=== PATIENT | female | born 1960 | race Caucasian/White ===

== ENCOUNTER → 2018-05-01 09:46 | Outpatient (CLI) | payer OTHER, SELFPAY | PROVIDERS: Family Provider Family Medicine; PCP Family Medicine; Visit Provider Nurse Practitioner Gerontology | DX: C50.919 Malignant neoplasm of unspecified site of unspecified female breast (principal); Z78.0 Asymptomatic menopausal state; Z82.62 Family history of osteoporosis; R29.890 Loss of height; Z87.891 Personal history of nicotine dependence | CPT/HCPCS: 77080 ==

== ENCOUNTER → 2018-06-07 12:58 | Outpatient (CLI) | payer OTHER, SELFPAY ==
--- NOTE | 2018-06-07 | DI.RAD.S_ITS ---
PROCEDURE: XR CHEST 2V INDICATIONS: ABDOMINAL PAIN/HISTORY OF BREAST CANCER,rib pain TECHNIQUE: 2 views of the chest were acquired. COMPARISON: [facility], , CHEST 1 VIEW, 09/22/2015, 15:49. FINDINGS: Surgical changes and devices: There is interval removal of previously noted right chest wall Port-A-Cath. Lungs and pleura: No pleural effusions or pneumothorax. Lungs are clear. Mediastinum: Mediastinal contours are normal. Heart size is normal. Bones and chest wall: No suspicious bony abnormalities. Soft tissues appear unremarkable. IMPRESSION: No acute cardiopulmonary pathology. Dictated by: Rodney Lackey M.D. on 06/07/2018 at 14:20 Approved by: Rodney Lackey M.D. on 06/07/2018 at 14:21
--- NOTE | 2018-06-07 13:01 | DI.CT.S_ITS ---
PROCEDURE: CT CHEST ABD PEL W CON INDICATIONS: Right sided chest and upper quadrant abdominal pain. Left sided breast cancer TECHNIQUE: After the administration of oral and intravenous contrast, 5 mm thick sections acquired from the lung apices to the symphysis. 5 mm coronal and sagittal reformats were performed, with additional 7 mm coronal MIP reformats through the lungs. For radiation dose reduction, the following was used: automated exposure control, adjustment of mA and/or kV according to patient size. COMPARISON: [facility], CT, CHEST/ABD/PEL WITH CONTRAST, 07/04/2015, 13:28. [facility], CT, CHEST/ABD/PEL WITH CONTRAST, 01/06/2018, 7:58. [facility], CR, XR CHEST 2V, 06/07/2018, 12:44. [facility], [place], BONE SCAN WHOLE BODY, 01/06/2018, 11:24. [facility], CT, THORAX WITHOUT CONTRAST, 09/09/2016, 12:44. [facility], CT, CHEST/ABD/PEL WITH CONTRAST, 06/24/2016, 12:30. [facility], CT, THORAX WITHOUT CONTRAST, 10/07/2017, 9:02. FINDINGS: Image quality: Excellent. CHEST: Lungs and pleura: Small lung nodules are present bilaterally, unchanged since 2014 or 2015, consistent with benign nodules. There is a scarlike density in the left upper lobe, presumably secondary to postradiation changes. No acute airspace opacities. No pleural effusions or pneumothorax. Central and peripheral airways appear patent and normal in caliber. Mediastinum: Heart size is normal. No pericardial effusion. No mediastinal or hilar adenopathy by size criteria. Thoracic aorta and central pulmonary arteries are normal in size. Esophagus is normal in caliber. No hiatal hernia. Chest wall: Bilateral mastectomy. Surgical clips in axillary. No axillary or supraclavicular adenopathy by size criteria. Thyroid gland is normal. ABDOMEN: Solid organs: Liver is normal in size and enhancement. Gallbladder is surgically absent. Biliary system is non dilated. Pancreas enhances normally. Spleen is normal in size and enhancement. No adrenal nodules. Kidneys demonstrate normal size and enhancement, without hydronephrosis. Peritoneum and bowel: Bowel loops demonstrate normal wall thickness and caliber. No free fluid or air. Nodes and vessels: No retroperitoneal or mesenteric adenopathy by size criteria. Aorta and inferior vena cava are normal in size. Miscellaneous: No ventral hernias. PELVIS: Genitourinary: Bladder wall thickness is normal. Miscellaneous: No inguinal hernias or adenopathy. Bones: No suspicious bony lesions. No vertebral body compression fractures. IMPRESSION: 1. No CT evidence for recurrent neoplasm. 2. Stable lung nodules as seen on multiple prior examinations, consistent with benign lesions. Dictated by: Erinn Dwyer M.D. on 06/07/2018 at 16:55 Approved by: Erinn Dwyer M.D. on 06/07/2018 at 17:18
== END ==
PROVIDERS: Family Provider Family Medicine; PCP Family Medicine; Visit Provider Nurse Practitioner Gerontology
DX: R10.11 Right upper quadrant pain (principal); R07.81 Pleurodynia; R91.8 Other nonspecific abnormal finding of lung field; Z85.3 Personal history of malignant neoplasm of breast
CPT/HCPCS: 71046; 71260; 74177; Q9967

== ENCOUNTER → 2019-01-31 13:43 | Outpatient (CLI) | payer OTHER, SELFPAY ==
--- NOTE | 2019-01-31 13:44 | DI.CT.S_ITS ---
PROCEDURE: CT CHEST ABD PEL W CON INDICATIONS: BREAST CANCER TECHNIQUE: After the administration of oral and intravenous contrast, 5 mm thick sections acquired from the lung apices to the symphysis. 5 mm coronal and sagittal reformats were performed, with additional 7 mm coronal MIP reformats through the lungs. For radiation dose reduction, the following was used: automated exposure control, adjustment of mA and/or kV according to patient size. COMPARISON: [facility], CT, THORAX WITHOUT CONTRAST, 09/09/2016, 12:44. [facility], CT, CT CHEST ABD PEL W CON, 06/07/2018, 13:59. FINDINGS: Image quality: Excellent. CHEST: Lungs and pleura: No acute airspace opacities. Small bilateral pulmonary nodules are stable dating back to 2016. Scarring in the left lung, involving the left upper lobe is again noted, possibly secondary to post radiation change. No pleural effusions or pneumothorax. Central and peripheral airways appear patent and normal in caliber. Mediastinum: Heart size is normal. No pericardial effusion. No mediastinal or hilar adenopathy by size criteria. Thoracic aorta and central pulmonary arteries are normal in size. Esophagus is normal in caliber. No hiatal hernia. Chest wall: No axillary or supraclavicular adenopathy by size criteria. Bilateral mastectomy. Thyroid gland is unremarkable. ABDOMEN: Solid organs: Liver is normal in size and enhancement. Gallbladder is surgically absent the. Biliary system is non dilated. Pancreas enhances normally. Spleen is normal in size and enhancement. No adrenal nodules. Kidneys demonstrate normal size and enhancement, without hydronephrosis. Peritoneum and bowel: Bowel loops demonstrate normal wall thickness and caliber. No free fluid or air. Nodes and vessels: No retroperitoneal or mesenteric adenopathy by size criteria. Aorta and inferior vena cava are normal in size. Miscellaneous: No ventral hernias. PELVIS: Genitourinary: Bladder wall thickness is normal. Miscellaneous: No inguinal hernias or adenopathy. Bones: No suspicious bony lesions. No vertebral body compression fractures. IMPRESSION: 1. Stable small bilateral pulmonary nodules consistent with benign disease. 2. No evidence of metastatic disease in the chest, abdomen, or pelvis. 3. Remote cholecystectomy. Dictated by: Mario Rhodes M.D. on 01/31/2019 at 17:11 Approved by: Mario Rhodes M.D. on 01/31/2019 at 17:17
--- NOTE | 2019-01-31 14:14 | PC.NURSE ---
20guage 2 catheter placed in right antecubital vein placed with ultrasound guidance. For CT procedure today. No lab draws.
== END ==
PROVIDERS: Family Provider Family Medicine; PCP Family Medicine; Visit Provider Internal Medicine Hematology & Oncology
DX: C50.919 Malignant neoplasm of unspecified site of unspecified female breast (principal); R91.8 Other nonspecific abnormal finding of lung field; Z90.49 Acquired absence of other specified parts of digestive tract
CPT/HCPCS: 71260; 74177; Q9967

== ENCOUNTER 2019-04-03 21:57 | Observation (INO) | payer OTHER, SELFPAY ==
[2019-04-03 22:21] VITALS: BP 146/72; PULSE 82; RESP 22; TEMP 37; O2SAT 97; BMI 46.6
--- NOTE | 2019-04-03 22:21 | ED.NAVMDI ---
HPI - Nausea/Vomiting/Diarrhea General Chief complaint: Neuro Symptoms/Deficit Stated complaint: NAUSEA, NOT FEELING RIGHT Time Seen by Provider: 04/03/19 22:00 Source: patient Mode of arrival: ambulatory Limitations: no limitations History of Present Illness HPI Narrative: 58-year-old female nonsmoker with history of breast cancer and hypertension presents with the chief complaint an episode double vision earlier today which was seemingly unprovoked. The episode lasted approximately 10-12 minutes and seemed to be only present with both eyes open as she covered her right eye and was able to see fine from her left eye and vice versa, however after this check her vision was completely normal even with both eyes so it is unclear if the episode was truly monocular or binocular. She denies any other focal neurologic findings such as numbness, tingling, weakness or ataxia. She does report a vague, generalized headache and some nausea in the aftermath. Furthermore, she had an episode of left-sided chest burning and pain that migrated up to her left anterior chest and is consistent with prior episodes of nerve pain in the aftermath of her mastectomy. Onset (ago): hour(s) Related Data Home Medications Medication Instructions Recorded Confirmed [COQ10] 200 mg PO Q DAY #0 05/28/16 12/01/18 lorazepam [Ativan] 0.5 mg PO QDAY PRN #0 MDD a 12/03/16 12/01/18 Ovega-3 1 cap PO QDAY #0 02/25/17 12/01/18 [APEX WATER] 1 cap PO Q DAY #0 03/24/17 12/01/18 [PREBIOTIC] 400 mg PO Q DAY #0 03/24/17 12/01/18 metoprolol tartrate 100 mg PO Q DAY #0 03/24/17 12/01/18 acyclovir 400 mg PO PRN PRN 04/21/18 01/25/19 chlorthalidone 25 mg PO DAILY 04/21/18 12/01/18 losartan 100 mg PO DAILY 04/21/18 12/01/18 cholecalciferol (vitamin D3) 4,000 unit PO DAILY 12/01/18 12/01/18 [Vitamin D3] iodine-sodium iodide [iodine] 1 - 5 drp/day DAILY 12/01/18 12/01/18 Cataplex B 01/25/19 Cataplex E 01/25/19 Previous Rx's Medication Instructions Recorded letrozole [Femara] 2.5 mg PO QDAY #90 tab 11/02/17 Allergies Allergy/AdvReac Type Severity Reaction Status Date / Time latex [LATEX] Allergy Intermediate RASH Verified 04/03/19 22:24 amlodipine Allergy Verified 04/03/19 22:24 TAGADERM Allergy Intermediate RASH Uncoded 12/01/18 11:57 Review of Systems Constitutional Denies chills, Denies fever(s), Reports headache(s), Denies lethargy and Denies weakness Eyes Reports change in vision, Reports diplopia, Denies eye discharge, Denies irritation and Denies loss of vision ENT Ears, Nose, Mouth, and Throat: Denies change in voice, Reports headache(s), Denies neck pain and Denies sore throat Cardiovascular Denies chest pain, Denies irregular heart rhythm, Denies lightheadedness, Denies palpitations, Denies dyspnea, Denies dyspnea on exertion and Denies orthopnea Respiratory Denies cough, Denies dyspnea, Denies dyspnea on exertion and Denies wheezing Gastrointestinal Gastrointestinal: Denies abdominal pain, Denies change in bowel habits, Denies diarrhea, Denies nausea and Denies vomiting Genitourinary Denies hematuria, Denies flank pain, Denies urinary incontinence and Denies urinary urgency Musculoskeletal Denies neck pain Integumentary/Breasts Denies pruritus, Denies erythema, Denies rash and Denies wounds Neurologic Denies confusion, Reports headache(s), Denies loss of vision and Denies weakness Psychiatric Denies anxiety, Denies confusion, Denies depression, Denies homicidal ideation and Denies suicidal ideation Endocrine Denies palpitations Hematologic/Lymphatic Denies easy bruising Allergic/Immunologic Denies wheezing PFSH Surgical History History of tonsillectomy Status post breast biopsy Status post cholecystectomy Status post tubal ligation Family History (Updated 11/17/15 @ 00:00 by Conversion Provider) Father Age: 87 Arthritis Prostate cancer Essential hypertension Grandmother Cancer Mother Age: 83 Arthritis [place] cell cancer Diabetes mellitus Heart disease Essential hypertension Grandmother Essential hypertension Cerebrovascular accident (CVA), unspecified mechanism Sister Age: 62 Arthritis Overweight Diabetes mellitus Essential hypertension Social History Smoking Status: Former smoker Family History Father Age: 87 Arthritis Prostate cancer Essential hypertension Grandmother Cancer Mother Age: 83 Arthritis [place] cell cancer Diabetes mellitus Heart disease Essential hypertension Grandmother Essential hypertension Cerebrovascular accident (CVA), unspecified mechanism Sister Age: 62 Arthritis Overweight Diabetes mellitus Essential hypertension Social History Smoking Status: Former smoker Exam Narrative Exam Narrative: GENERAL: 58-year-old female appears stated age, very pleasant and resting comfortably, in no current significant distress HEAD: Atraumatic. Normocephalic. No temporal or scalp tenderness. EYES: Pupils equal round and reactive. Extraocular motions intact. No scleral icterus. No injection or drainage. ENT: Nose without bleeding, purulent drainage or septal hematoma. Throat without erythema, tonsillar hypertrophy or exudate. Uvula midline. Airway patent. NECK: Trachea midline. No JVD or lymphadenopathy. Supple, nontender, no meningeal signs. CARDIOVASCULAR: Regular rate and rhythm without murmurs, gallops, or rubs. RESPIRATORY: Clear to auscultation. Breath sounds equal bilaterally. No wheezes, rales, or rhonchi. GASTROINTESTINAL: Abdomen soft, non-tender, nondistended. No hepato-splenomegaly, or palpable masses. No guarding. EXTREMITIES: No clubbing, cyanosis, or edema. No joint tenderness, effusion, or edema noted. BACK: Nontender without deformity or crepitance. No flank tenderness. NEURO: AOx3. SKIN: No rash or erythema. NIH Stroke Scale 1a. LOC: Patient is alert and keenly responsive (0) 1b. LOC Questions: Patient answers both LOC questions accurately (0) 1c. LOC Commands: Patient performs both tasks correctly (0) 2. Best Gaze: Normal (0) 3. Visual: No visual loss (0) 4. Facial palsy: Normal symmetrical movements (0) 5. Motor arm: No drift (0) 6. Motor leg: No drift (0) 7. Limb ataxia: Absent (0) 8. Sensory: Normal (0) 9. Best language: No aphasia; normal (0) 10. Dysarthria: Normal (0) 11. Extinction and inattention: No abnormality (0) NIHSS: 0 Initial Vital Signs Initial Vital Signs: Vital Signs Temperature 98.6 F 04/03/19 22:21 Pulse Rate 82 04/03/19 22:21 Respiratory Rate 22 04/03/19 22:21 Blood Pressure 146/72 H 04/03/19 22:21 Pulse Oximetry 97 04/03/19 22:21 Course Orders Ordered: ED Orders 04/03/19 22:22 XR chest 1V Stat EKG-12 Lead Stat 04/03/19 23:17 CT head/brain wo con Stat 04/03/19 23:19 Complete Blood Count AUTO DIFF Stat Comprehensive Metabolic Panel Stat Lipase Stat Troponin & CK Cardiac Panel Stat 04/04/19 01:02 Magnesium Stat Sodium Chloride (Normal Saline 0.9%) 1,000 mls @ 150 mls/hr IV CONT ILAN Last Admin: 04/03/19 23:16 Dose: Not Given Discontinued Medications Ondansetron HCl (Zofran) 4 mg IV NOW ONE Stop: 04/03/19 22:22 Last Admin: 04/03/19 23:04 Dose: Not Given Potassium Chloride (Potassium Chloride) 40 meq PO NOW ONE Stop: 04/03/19 23:53 Last Admin: 04/04/19 00:07 Dose: 40 meq Consultations Consultation #1: Called to [facility] the stroke neurologist to discuss the case. We sure the opinion that this series of symptoms requires admission for TIA workup including MRI and echocardiogram. Vital Signs - 8 hr 04/03/19 22:21 04/03/19 23:21 04/04/19 00:00 Temperature 98.6 F Pulse Rate 82 71 Respiratory Rate 22 17 19 Blood Pressure 146/72 H Blood Pressure [Right Arm] 122/78 110/79 Pulse Oximetry 97 100 04/04/19 01:00 Temperature Pulse Rate 65 Respiratory Rate 17 Blood Pressure Blood Pressure [Right Arm] 120/65 Pulse Oximetry 100 MDM - Nausea/Vomiting/Diarrhea Lab Data Result diagrams: 04/03/19 23:19 04/03/19 23:19 Lab Results 04/03/19 04/03/19 04/03/19 Range/Units 23:19 23:19 23:19 WBC 8.7 (4.5-11.0) X10^3/uL RBC 4.19 (4.0-5.2) X10^6/uL Hgb 13.1 (12.0-16.0) g/dL Hct 38.8 (36-46) % MCV 92.6 (80-100) fL MCH 31.4 (26-34) PG MCHC 33.9 (30-36) % RDW 13.2 (11.6-14.8) % Plt Count 199 (150-400) X10^3/uL Neut % (Auto) 72.6 (50-75) % Lymph % (Auto) 19.1 L (25-40) % [place] % (Auto) 6.8 (3-14) % Eos % (Auto) 1.1 L (2-4) % Baso % (Auto) 0.4 (0-2) % Neut # (Auto) 6300 (7391-9944) /uL Lymph # (Auto) 1700 (4066-9709) /uL [place] # (Auto) 600 (0-900) /uL Eos # (Auto) 100 (0-450) /uL Baso # (Auto) 0 (0-100) /uL Sodium 138 (137-145) mmol/L Potassium 2.9 L (3.4-5.1) mmol/L Chloride 101 (98-107) mmol/L Carbon Dioxide 28 (22-32) mmol/L BUN 26 H (7-17) mg/dL Creatinine 1.10 H (0.52-1.04) mg/dL Estimated GFR 51.2 L (>60) mL/min BUN/Creatinine Ratio 23.6 H (6-22) Glucose 125 H (70-100) mg/dL Calcium 9.3 (8.4-10.2) mg/dL Magnesium 2.4 H (1.6-2.3) mg/dL Total Bilirubin 0.6 (0.2-1.3) mg/dL AST 28 (14-36) IU/L ALT 20 (9-52) IU/L Alkaline Phosphatase 67 (38-126) U/L Total Creatine Kinase 92 (30-135) U/L CK-MB (CK-2) TNP CK-MB (CK-2) Rel Index TNP Troponin I < 0.012 (0.01-0.034) ng/mL Total Protein 7.5 (6.3-8.2) g/dL Albumin 4.2 (3.5-5.0) g/dL Globulin 3.3 (1.7-4.1) g/dL Albumin/Globulin Ratio 1.3 (1.0-2.8) Lipase 126 (23-300) U/L Urine Dip Bedside Urine Glucose Negative Bedside Urine Bilirubin - Negative Bedside Urine Ketone - Negative Urine Specific [place] 1.010 Bedside Urine Occult Blood - Negative Bedside Urine pH 6.5 Bedside Urine Protein - Negative Bedside Urine Urobilinogen - Negative Bedside Urine Nitrite - Negative Bedside Urine Leukocytes - Negative Esterase Imaging Data CT scan - head: Radiologist's impression: [facility] Narrative Medical decision making narrative: Patient has isolated neurologic symptoms that resolved, raising the suspicion TIA as etiology. It is unlikely that her potassium of 2.9 cause these symptoms though it could theoretically be the cause. She will require admission in the hospital for evaluation of possible TIA and other causes of her transient diplopia Discharge Plan Departure Patient Disposition: Admitted as Observation Clinical Impression: Brain TIA, Acute hypokalemia
--- NOTE | 2019-04-03 22:22 | DI.RAD.S_ITS ---
PROCEDURE: XR CHEST 1V INDICATIONS: pain/weakness TECHNIQUE: One view of the chest was acquired. COMPARISON: [facility], [place], XR CHEST 2V, 06/07/2018, 12:44. [facility], [place], CHEST 1 VIEW, 09/22/2015, 15:49. FINDINGS: Surgical changes and devices: Postsurgical clips each breast laterally. Lungs and pleura: Lungs are clear. No pleural effusions or pneumothorax. Mediastinum: Mediastinal contours appear normal. Heart size is normal. Bones and chest wall: No suspicious bony lesions. Overlying soft tissues appear unremarkable. IMPRESSION: Normal for age except for presumed prior breast carcinoma surgery bilaterally., source of current chest pain symptoms is not seen. Dictated by: Cuauhtemoc Gao M.D. on 04/04/2019 at 6:54 Approved by: Cuauhtemoc Gao M.D. on 04/04/2019 at 6:55
--- NOTE | 2019-04-03 23:17 | DI.CT.S_ITS ---
PROCEDURE: CT HEAD/BRAIN WO CON INDICATIONS: blurred vision, headache TECHNIQUE: Noncontrast 4.5 mm thick angled axial sections acquired from the foramen magnum to the vertex, with coronal and sagittal reformats. For radiation dose reduction, the following was used: automated exposure control, adjustment of mA and/or kV according to patient size. COMPARISON: None. FINDINGS: Image quality: Excellent. CSF spaces: Basal cisterns are patent. No extra-axial fluid collections. Ventricles are normal in size and shape. Brain: No midline shift. No intracranial masses or hemorrhage. [place]-white matter interface is normal. Skull and face: Calvarium and visualized facial bones are intact, without suspicious lesions. Sinuses: Visualized sinuses and mastoids are clear. IMPRESSION: Normal for age, source of current headache and blurred vision symptoms is not seen. Dictated by: Cuauhtemoc Gao M.D. on 04/04/2019 at 6:56 Approved by: Cuauhtemoc Gao M.D. on 04/04/2019 at 6:56
[2019-04-03 23:21] VITALS: BP 122/78; RESP 17
[2019-04-03 23:31] LABS: Add Manual Diff / Slide Review NO; Basophils Absolute Auto 0 /uL (0-100); Basophils Percent Auto 0.4 % (0-2); Eosinophils Absolute Auto 100 /uL (0-450); Eosinophils Percent Auto 1.1 % (2-4); Hematocrit 38.8 % (36-46); Hemoglobin 13.1 g/dL (12.0-16.0); Lymphocytes Absolute Auto 1700 /uL (1100-4500); Lymphocytes Percent Auto 19.1 % (25-40); Mean Corpuscular HGB Conc 33.9 % (30-36); Mean Corpuscular Hemoglobin 31.4 PG (26-34); Mean Corpuscular Volume 92.6 fL (80-100); Monocytes Absolute Auto 600 /uL (0-900); Monocytes Percent Auto 6.8 % (3-14); Neutrophils Absolute Auto 6300 /uL (1500-7000); Neutrophils Percent Auto 72.6 % (50-75); Platelet Count 199 X10^3/uL (150-400); Red Blood Cell Count 4.19 X10^6/uL (4.0-5.2); Red Cell Distribution Width 13.2 % (11.6-14.8); White Blood Cell Count 8.7 X10^3/uL (4.5-11.0)
[2019-04-03 23:43] LABS: Alanine Aminotransferase 20 IU/L (9-52); Albumin 4.2 g/dL (3.5-5.0); Albumin Globulin Ratio 1.3 (1.0-2.8); Alkaline Phosphatase 67 U/L (38-126); Aspartate Aminotransferase 28 IU/L (14-36); BUN Creatinine Ratio 23.6 (6-22); Bilirubin Total 0.6 mg/dL (0.2-1.3); Blood Urea Nitrogen 26 mg/dL (7-17); Calcium 9.3 mg/dL (8.4-10.2); Carbon Dioxide 28 mmol/L (22-32); Chloride 101 mmol/L (98-107); Creatine Kinase 92 U/L (30-135); Estimated Glomerular Filt Rate 51.2 mL/min (>60); Globulin 3.3 g/dL (1.7-4.1); Glucose 125 mg/dL (70-100); HEMOLYSIS < 15 (0-50); Lipase 126 U/L (23-300); Potassium 2.9 mmol/L (3.4-5.1); Sodium 138 mmol/L (137-145); Total Protein 7.5 g/dL (6.3-8.2)
[2019-04-03 23:55] LABS: Troponin I < 0.012 ng/mL (0.01-0.034)
[2019-04-04] VITALS (7 sets, daily range): BP systolic 110–151; BP diastolic 65–93; PULSE 61–71; RESP 16–68; TEMP 36.3–36.9; O2SAT 97–100; BMI 46.6
[2019-04-04] MEDS: POTASSIUM CHLORIDE 20 MEQ/15 ML UDC 40 MEQ PO (00:07)
[2019-04-04 01:14] LABS: Magnesium 2.4 mg/dL (1.6-2.3)
--- NOTE | 2019-04-04 02:45 | DI.MRI.S_ITS ---
PROCEDURE: MR STROKE Pre- and post-contrast brain MRI, non-contrast brain MR angiogram, pre- and postcontrast neck MR angiogram INDICATIONS: TIA, visual disturbance TECHNIQUE: Brain: Noncontrast axial T1 spin echo, axial T2 fast spin echo, sagittal and axial FLAIR, coronal T2 fast spin echo, axial gradient echo, axial diffusion and ADC through the brain. After the administration of contrast, axial 3D VIBE of the cranial vasculature and brain. Brain MRA: Non-contrast 3-D time of flight MR angiogram, with multiple ykifzei-kwvzajfhl-orilnopdob (MIP) reformats performed. Neck MRA: Axial and sagittal TruFISP through the neck. Coronal dynamic MR angiogram during administration of contrast in the arterial and venous phases, with 3-dimenstional uiiirbn-cvqbvsmir-dzmxgisdjs (MIP) reformats constructed from subtraction images. COMPARISON: None. FINDINGS: Image quality: Mild patient motion during image acquisition.. BRAIN: CSF spaces: Ventricles are normal in size and shape. Basal cisterns are patent. No extra-axial fluid collections. Brain: No intracranial bleeds or mass effects. [place]-white matter interface is normal. Diffusion weighted images show no acute ischemic insults. Brainstem appears normal. Normal intravascular flow voids are present. No abnormal intracranial enhancement. Skull and face: Calvarial marrow signal is normal. Orbits appear normal. Sinuses: Sinuses and mastoids are clear. BRAIN MR ANGIOGRAM: Anterior circulation: Intracranial internal carotid arteries are normal in size and enhancement. The flow within the paired anterior cerebral arteries is normal and symmetric. The flow within the middle cerebral arteries is normal and symmetric. The anterior communicating artery is seen. No stenoses, occlusions, or aneurysms. Posterior circulation: The visualized portions of the vertebral arteries demonstrate normal caliber, and join to form a normal appearing basilar artery. The flow within the posterior cerebral arteries is normal and symmetric. No stenoses, occlusions, or aneurysms. NECK MR ANGIOGRAM: Carotids: Great vessels demonstrate a conventional anatomy as they arise from the aortic arch. The origins of the common carotid arteries appear patent. The calibers and courses of both common carotid arteries are normal. The bifurcation regions appear normal bilaterally. The internal carotid arteries demonstrate normal course and caliber. Posterior circulation: The origins of the vertebral arteries appear patent. More superior portions of both vertebral arteries demonstrate normal course and caliber, and join to form a normal appearing basilar artery. Miscellaneous: Subclavian arteries appear patent. Pre-contrast images through the neck show no soft tissue abnormalities. IMPRESSION: BRAIN MRI: No mass or stroke is found, no hemorrhage is identified. Source of current symptoms is not seen. BRAIN MR ANGIOGRAM: Normal intracranial MR angiogram. NECK MR ANGIOGRAM: Normal cervical MR angiogram. Dictated by: Cuauhtemoc Gao M.D. on 04/04/2019 at 10:50 Approved by: Cuauhtemoc Gao M.D. on 04/04/2019 at 11:02
--- NOTE | 2019-04-04 02:54 | DI.ECHO.S_ITS ---
[facility] +---------+ : : [address] : : : : [address] : : : : [address] : : : : Phone: [phone] Echocardiogram Report + + :Name: STEPHANIE PUENTES Study Date: 04/04/2019 Height: 62 in : :[facility] Exam Location: [facility] Weight: 255 lb : : Gender: Female BSA: 2.1 m2 : :: 1960 Age: 58 yrs BP: 140/81 mmHg: :Reason For Study: MURMUR : : Performed By: Chadd Harris : :Referring: MIRACLE MEYER : + + Interpretation Summary 1) Normal left ventricular thickness, size, wall motion, and systolic function (EF 60-65%). 2) Normal right ventricular size and function. 3) No significant valvular abnormalities. 4) Compared to the [facility] odone 09/26/2015, no significant change. Procedure: A two-dimensional transthoracic echocardiogram with color flow and Doppler was performed. The study quality was technically adequate. Comparison is made with the echocardiogram of 09/26/15. The patient was in normal sinus rhythm during the exam. Left Ventricle: The left ventricle is normal in size. There is normal left ventricular wall thickness. The ejection fraction is estimated to be 60-65%. There are no focal wall motion abnormalities. Right Ventricle: The right ventricle is normal in size and function. Atria: The left atrium is mildly dilated. Right atrial size is normal. The interatrial septum is intact with no evidence for an atrial septal defect. Mitral Valve: The mitral valve is normal in structure and function. There is trace mitral regurgitation. Aortic Valve: The aortic valve is trileaflet. The aortic valve opens well. There is no aortic valve stenosis. There is trace aortic regurgitation. Tricuspid Valve: The tricuspid valve is normal in structure and function. There is trace tricuspid regurgitation. The right ventricular systolic pressure is estimated to be at least 24 mmHg based on an estimated right atrial pressure of 3 mm Hg. Pulmonic Valve: The pulmonic valve is normal in structure and function. There is trace pulmonic regurgitation. Great Vessels: The aortic root is normal size. The dimensions of the ascending aorta are normal. The pulmonary artery is normal size. The IVC is of normal diameter and collapses greater than 50% with a sniff. This suggests a low right atrial pressure of 3 mm Hg. Pericardium/ Pleura There is no pericardial effusion. There is no pleural effusion. MMode/2D Measurements & Calculations LVIDd: 5.0 cm LVOT diam: 2.1 cm LVIDs: 2.9 cm Ao root diam: 3.0 cm FS: 41.9 % Aortic Jxn: 2.5 cm EPSS: 0.42 cm asc Aorta Diam: 3.4 cm IVSd: 0.95 cm Ao Arch Diam (Prox Trans): 2.7 cm LVPWd: 0.90 cm LV ortiz. diameter/BSA (cm/m^2): 2.4 LV sys. diameter/BSA (cm/m^2): 1.4 LA dimension: 3.7 cm RA long axis: 5.1 cm LA A2 area: 24.7 cm2 RA area: 15.7 cm2 LA A4 area: 22.0 cm2 RA vol: 41.1 ml LA length (vol): 5.6 cm RA : 19.4 ml/m2 LA vol: 81.9 ml IVC diam: 1.2 cm LA vol index: 38.6 ml/m2 Doppler Measurements & Calculations Ao V2 max: 176.7 cm/sec LVOT Max Arjesh: 120.1 cm/sec Ao V2 mean: 134.3 cm/sec LV V1 max P.8 mmHg Ao max P.5 mmHg LV V1 VTI: 26.4 cm Ao mean P.7 mmHg MARIA LUISA(I,D): 2.1 cm2 Ao V2 VTI: 42.4 cm MARIA LUISA(V,D): 2.3 cm2 sev ratio: 0.62 MARIA LUISA indexed to BSA (cm^2/m^2): 1.0 MV E max rajesh: 75.3 cm/sec TR max rajesh: 227.4 cm/sec MV A max rajesh: 65.5 cm/sec TR max P.7 mmHg MV E/A: 1.2 PA V2 max: 101.6 cm/sec Med Peak E' Rajesh: 5.9 cm/sec PA V2 mean: 74.1 cm/sec E/E' med: 12.8 PA mean P.4 mmHg Lat Peak E' Rajesh: 10.8 cm/sec PA pr(Accel): 4.1 mmHg E/E' lat: 7.0 PA Accel Time: 0.17 sec E/e' average: 9.9 MV dec time: 0.20 sec SV(LVOT): 90.6 ml Reading Physician:02:41 PM
--- NOTE | 2019-04-04 02:57 | PM.HP.1 ---
History of Present Illness Date Patient Seen: 04/04/19 Time Patient Seen: 02:30 Chief complaint: NAUSEA, NOT FEELING RIGHT Narrative: Ms. Shannon Eden is a 58-year-old female patient with history significant for hypertension, hypothyroidism, left breast cancer stage III post chemotherapy obstructive sleep apnea on CPAP presents to the ER after developing an episode of double vision this evening. Patient states she had a both visual changes consisting of diplopia with both eyes open however describes normal vision in each eye with the other eye covered. She had associated mild headache but denies nausea or dizziness, dysphagia or dysarthria, no weakness numbness or tingling or ataxia. The episode lasted approximately 10-12 minutes and resolved spontaneously. The patient has a history of breast cancer stage III which has been treated with bilateral mastectomy and chemotherapy which has since been completed. She does has been followed by Dr. Fernandez after developing elevated troponins during chemotherapy and has had ongoing surveillance. She does endorse an episode of left lateral chest pain which she believes to be chest wall and may be related to her previous surgery. She also describes having brief episodes of palpitations in the form of rapid heart rate that her self terminating stating she is unsure as of the palpitations really present or if she is imagining it. She denies any complaints of fevers or chills, nasal congestion or sore throat. She has had no shortness of breath cough or wheezing. She denies abdominal pain, nausea vomiting, diarrhea or constipation. She denies dysuria. She does wear a left arm sleeve for lymphedema management. Upon arrival in the ER the patient is afebrile 98.6 with heart rate is 82 and blood pressure 146/72. Respirations are 22 with an oxygen saturation 97% on room air. She did have a head CT completed which found no acute intracranial pathology. She had laboratory testing done which finds normal white count at 8.7 with a hemoglobin of 13.1 hematocrit 38.8 with platelets of 199. Her chemistries are notable for a low potassium of 2.9 for which she sees 4 mil equivalents p.o. in the ER with a normal sodium 138, BUN of 26 and creatinine 1.1 with a EGFR of 512. Her nonfasting glucose is 125 and she has a magnesium level of 2.4. Her liver functions were all within normal limits as were her troponin and CK. The ER provider did speak the [place] Stroke team. The patient is admitted for rule out TIA and treatment of hypokalemia. Patient History Medical History Cancer of left female breast (Acute) Elevated TSH (Acute) Hypertension (Acute) Surgical History History of tonsillectomy Status post breast biopsy Status post cholecystectomy Status post tubal ligation Family History Father Age: 87 Arthritis Prostate cancer Essential hypertension Grandmother Cancer Mother Age: 83 Arthritis Nixon cell cancer Diabetes mellitus Heart disease Essential hypertension Grandmother Essential hypertension Cerebrovascular accident (CVA), unspecified mechanism Sister Age: 62 Arthritis Overweight Diabetes mellitus Essential hypertension Social History Smoking Status: Former smoker Comment: Patient lives at home alone and has been for 6 years. Her father still living and has had hypertension atrial fibrillation, prostate cancer and a pituitary tumor. Her mother has had cardiac disease related to rheumatic fever, atrial fibrillation and chronic renal problems. She has 1 brother who has diabetes and is suffered a stroke. Smoking: Patient previously smoked 1/2 pack per day for approximately 25 years. Alcohol: The patient a longer consumes alcohol quitting in 2016. Substance use: The patient uses cannabis eatibles and will vap cannabis. Advanced directives: In direct discussion with the patient she wishes to be a FULL CODE. Family & Social History Family History Father Age: 87 Arthritis Prostate cancer Essential hypertension Grandmother Cancer Mother Age: 83 Arthritis Wheatcroft cell cancer Diabetes mellitus Heart disease Essential hypertension Grandmother Essential hypertension Cerebrovascular accident (CVA), unspecified mechanism Sister Age: 62 Arthritis Overweight Diabetes mellitus Essential hypertension Safety & Behavioral: Feels Safe in Current Yes Environment Tobacco & Substance use: Smoking Status Former smoker alcohol intake frequency 0-2 drinks per day Substance Use Type marijuana Meds Home Medications Medication Instructions Recorded Confirmed Type [COQ10] 200 mg PO Q DAY #0 05/28/16 12/01/18 History lorazepam [Ativan] 0.5 mg PO QDAY PRN #0 MDD a 12/03/16 12/01/18 History Ovega-3 1 cap PO QDAY #0 02/25/17 12/01/18 History [APEX WATER] 1 cap PO Q DAY #0 03/24/17 12/01/18 History [PREBIOTIC] 400 mg PO Q DAY #0 03/24/17 12/01/18 History letrozole [Femara] 2.5 mg PO QDAY #90 tab 11/02/17 04/04/19 Rx chlorthalidone 25 mg PO DAILY 04/21/18 04/04/19 History losartan 100 mg PO DAILY 04/21/18 04/04/19 History cholecalciferol (vitamin D3) 4,000 unit PO DAILY 12/01/18 12/01/18 History [Vitamin D3] iodine-sodium iodide [iodine] 1 - 5 drp/day DAILY 12/01/18 04/04/19 History Cataplex B 01/25/19 History Cataplex E 01/25/19 History metoprolol succinate 100 mg PO DAILY 04/04/19 04/04/19 History Allergies Allergy/AdvReac Type Severity Reaction Status Date / Time latex [LATEX] Allergy Intermediate RASH Verified 04/03/19 22:24 amlodipine Allergy Verified 04/03/19 22:24 TAGADERM Allergy Intermediate RASH Uncoded 12/01/18 11:57 Review of Systems Review of Systems All systems reviewed & are unremarkable except as noted in HPI and below Exam Vital Signs (past 8 hours): - 04/03/19 22:21 04/03/19 23:21 04/04/19 00:00 Temperature 98.6 F Pulse Rate 82 71 Respiratory Rate 22 17 19 Blood Pressure 146/72 H Blood Pressure [Right Arm] 122/78 110/79 Pulse Oximetry 97 100 04/04/19 01:00 04/04/19 02:25 Temperature Pulse Rate 65 68 Respiratory Rate 17 16 Blood Pressure 120/65 Blood Pressure [Right Arm] 120/65 Pulse Oximetry 100 98 Oxygen Delivery Method Room Air Narrative Exam Narrative: GENERAL APPEARANCE: well developed, morbidly obese female with BMI 46.6 who is well-groomed, pleasant and in no acute distress. HEAD: Normocephalic, atraumatic, no scalp lesions. EYES: No ptosis, pupils equal, round, reactive to light and accommodation, sclera non-icteric, extraocular movement intact without nystagmus, visual day intact by confrontation. EARS: normal external structures, no ear pain NOSE: sinuses non tender to percussion, no rhinorrhea ORAL CAVITY: mucosa moist without lesions or exudate, palate normal, tongue in midline. THROAT: normal, no erythema, no exudate, pharynx normal, uvula midline. NECK/THYROID: neck supple, no jugular venous distention, no carotid bruit, no thyromegaly, trachea midline. LYMPH NODES: no cervical or supraclavicular lymphadenopathy. SKIN: warm and dry, no suspicious lesions, no rashes, good turgor. HEART: regular rate and rhythm, S1-S2 1/6 systolic murmur over the upper right sternal border, no rubs or gallops, brisk capillary refill, no edema LUNGS: clear to auscultation bilaterally, no coarseness crackles or wheezing, no cough present CHEST: Symmetrical movement, no accessory muscle use, no pain to AP and lateral compression. ABDOMEN: Soft, no distention, no epigastric or abdominal tenderness on palpation, no guarding or peritoneal signs, no organomegaly, no flank or suprapubic tenderness, active bowel tones. BACK: nontender to palpation EXTREMITIES: moves all extremities, strength is 5/5 and symmetrical, well perfused. NEUROLOGIC: AAO x4, no focal neurologic deficits, cranial nerves II-XII grossly intact , no drift, post chemo neuropathy distal forefoot bilaterally. PSYCH: alert, cooperative, cognitive function intact, good eye contact, stable mood with congruent affect Objective Labs Result Diagrams: 04/03/19 23:19 04/03/19 23:19 Labs: Laboratory Results - last 24 hr 04/03/19 04/03/19 04/03/19 23:19 23:19 23:19 WBC 8.7 RBC 4.19 Hgb 13.1 Hct 38.8 MCV 92.6 MCH 31.4 MCHC 33.9 RDW 13.2 Plt Count 199 Neut % (Auto) 72.6 Lymph % (Auto) 19.1 L [place] % (Auto) 6.8 Eos % (Auto) 1.1 L Baso % (Auto) 0.4 Neut # (Auto) 6300 Lymph # (Auto) 1700 [place] # (Auto) 600 Eos # (Auto) 100 Baso # (Auto) 0 Sodium 138 Potassium 2.9 L Chloride 101 Carbon Dioxide 28 BUN 26 H Creatinine 1.10 H Estimated GFR 51.2 L BUN/Creatinine Ratio 23.6 H Glucose 125 H Calcium 9.3 Magnesium 2.4 H Total Bilirubin 0.6 AST 28 ALT 20 Alkaline Phosphatase 67 Total Creatine Kinase 92 CK-MB (CK-2) TNP CK-MB (CK-2) Rel Index TNP Troponin I < 0.012 Total Protein 7.5 Albumin 4.2 Globulin 3.3 Albumin/Globulin Ratio 1.3 Lipase 126 Assessment & Plan Assessment & Plan narrative: The patient is admitted to the hospital following an episode of visual changes consisting of diplopia at spontaneous resolved lasting approximately 12 minutes with incidental finding of hypokalemia. 1. Acute TIA, symptoms resolved upon arrival -patient with changes in vision with diplopia, when patient checks each eye individually she describes her vision is normal. -patient has risk factors including breast cancer having completed chemo, hypertension, obesity and likely hyperlipidemia. She is also complained of palpitations. -continue being dull headache rated at 1 to 2/10 -NIH score is 0, ABCD2 score is 2. -will start aspirin 81 mg daily. -will start atorvastatin 40 mg daily -will obtain MR stroke protocol -obtain an echocardiogram. -will replete potassium and recheck BMP. -will check lipid panel and adjust atorvastatin dose as needed. -PT and OT to evaluate and treat. 2. Acute Hypokalemia, present on admission -patient has been on chlorthalidone 25 mg for over a year, her potassium has been recently checked and found to be 3.5 but notes that the level has been trending down. -this may be complexity in her symptomatology however she has no other complaints of weakness, EKG is sinus rhythm at 68 without ectopy or block, no T-wave changes. -patient received 40 mEq of potassium solution in the emergency department, -potassium K rider 40 mEq x1 now. -will recheck BMP. 3. Hypertension, stable -blood pressure on admission was 146/72 with most recent reading of 120/65. -will continue patient's home medications of metoprolol succinate 100 mg daily, losartan 100 mg daily and chlorthalidone 25 mg daily. 4. Hypothyroidism, unknown status -the patient reports having elevated TSH at 12 and has been taking supplements. -last reported free T4 level was 0.75 2 years ago. -will obtain a TSH with reflex to T4. 5. Morbid obesity, BMI 45.6 -patient is actively seeking to lose weight and states understanding implications of obesity. -consult a dietitian. 6. Breast cancer stage III, post chemotherapy, stable -patient is under active surveillance by Dr. Ramos, oncology. -continue patient's home medication of letrozole 2.5 mg daily. The patient admitted to the hospital related to the severity of symptoms and the risk for complications or adverse events. The patient is admitted observation with expected length of stay to be less than 2 midnights. Scores ABCD2 Age >= 60 years: no Initial BP. Either SBP >= 140 or DBP >= 90.: yes Clinical features of the TIA: other symptoms Duration of symptoms: 10-59 minutes History of diabetes: no ABCD2 Score: 2 NIHSS Level of Conciousness: Alert, keenly responsive Ask month/age: Answers both questions correctly. Open/close eyes, close hand: Performs both tasks correctly Best gaze horizontal: Normal Visual day: No visual loss Facial palsy: Normal symetrical movement Left arm drift: No drift for full 10 sec Right arm drift: No drift for full 10 sec Left leg drift: No drift for full 10 sec Right leg drift: No drift for full 10 sec Limb ataxia: Absent Sensory on face/arms/legs: Normal, no sensory loss Best language: No aphasia, normal Dysarthria: Normal Extinction or inattention: No abnormality Total NIH Stroke scale score: 0
[2019-04-04] MEDS: SODIUM CHLORIDE 0.9% 1,000 ML 50 ML IV (03:24)
[2019-04-04] MEDS: POTASSIUM CHLORIDE 40 MEQ in SODIUM CHLORIDE 0.9% 500 ML 130 ML IV (03:57)
--- NOTE | 2019-04-04 04:36 | PC.NURSE ---
Addendum entered and electronically signed by Rafaela Linn R.N. 04/04/19 06:25: Pt has K+ going at 105 instead of 130 because 130ml/hr was burning too much. Lab was told to hold lab draw at 0600 because K rider isn't in yet. Lab to be notified when to come back after K+ is finished. Original Note: Safe hand off from TREER. Pt arrived on unit at 0300 by wheelchair. Pt is A&ox4, Calm and cooperative. Standby assist at bedside. Pt denies pain, and lung sounds are clear bilaterally. Pt is on Tele: NS. VSS 115/73, P61, R17, W113.8kg. Pt has had extensive mastectomy on left side and right side mastectomy w/ lymph nodes still intact. SCD's were applied bilaterally, education was done about the use of call light and call light is by her side.
[2019-04-04 04:49] LABS: Free T3, Triiodothyronine Free 2.42 pg/mL (2.77-5.27); Free T4, Direct Thyroxine 0.58 ng/dL (0.78-2.19)
[2019-04-04] MEDS: CHLORTHALIDONE 25 MG TABLET PO (07:57)
[2019-04-04] MEDS: ASPIRIN EC 81 MG TABLET PO (07:57)
[2019-04-04] MEDS: METOPROLOL ER 50 MG TABLET 100 MG PO (07:57)
--- NOTE | 2019-04-04 11:11 | ST.IPCSEOM ---
Care Team Visit Care Team Role Provider Type L Sylwia Escalante MD Family Provider Non-Staff Primary Care Provider Specialty: Family Practice Address: [facility] [place], [address] Email: Esteban Garcia DO Emergency Provider Physician Specialty: Emergency Medicine Address: [address] [place] [address], [address] Email: [email or web address] Admit Provider Physician Attending Provider Specialty: Internal Medicine Address: [address] [place] [address], [id number] Email: Past Medical History (Last Reviewed 04/04/19 @ 03:16 by EDIE Urias) Cancer of left female breast (Acute Medical) Elevated TSH (Acute Medical) Hypertension (Acute Medical) Speech-Language Pathology 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 Clinical Swallow Evaluation Start: 04/04/19 10:54 Freq: Status: Active Protocol: Document 04/04/19 10:56 LNK (Rec: 04/04/19 11:10 LNK [id number]) Clinical Swallow Evaluation Session Time Visit Start Time 10:30 Visit Stop Time 10:50 Total Visit Minutes 20 Setting Assessment Location Acute Care Visit Type Note Type Initial Evaluation Patient Information Identification Type Name ID Wristband History Medical History (Reviewed 03/18 @ 03:16 by EDIE Urias) Cancer of left female breast (Acute) Elevated TSH (Acute) Hypertension (Acute) Shannon Eden presented to the ER after developing an episode of double vision this evening . Patient stated she had a both visual changes consisting of diplopia with both eyes open however describes normal vision in each eye with the other eye covered. She had associated mild headache but denies nausea or dizziness, dysphagia or dysarthria, no weakness numbness or tingling or ataxia. The episode lasted approximately 10-12 minutes and resolved spontaneously. Subjective Observations Shannon was up in her room having just returned from MRI. She was able to relate to me her event history without s/sx of aphasia, dysarthria or cognitive difficulty. Pt's diadochokinesis was WNL. Her affect, recall, orientation and memory appeared to WNL. Extensive education re: s/sx of the above disorders was provided to the pt, who indicated she understood and was appreciative. shannon remarked that her sisterf had a CVA and that she was familiar with the s/sx to be aware of in the future. Evaluation Liquids Trialed Thin Solids Trialed Regular Administration Type Self-Feeding Oral Impairment WNL Oral Phase Comments Oral phase observed to be WNL. No oral residue. No cough/ choke/wet voicing noted. Shannon safely masticated and swallowed regular texture without difficulty. Pharyngeal Impairment WNL Pharyngeal Phase Comments Pharyngeal phase of pt's swallow was observed to be WNL . Hyolaryngeal elevation/ excursion was adequate, no audible swallow sound, no evidence of pharyngeal pooling noted. Findings Dysphagia Type NONE Impressions Shannon presented with swallowing WNL for oral/pharyngeal phases. No overt s/sx of dysphagia were observed. Shannon safely tolerated regular texture and thin liquids without overt s/sx aspiration. Diet Recommendations Liquids Order Thin Diet Order Regular Medication Recommendations As Tolerated Aspiration Precautions Recommended Precautions Upright at 90 Degrees Treatment Plan Placement Recommendations after Home Discharge Appropriate for Therapy No
--- NOTE | 2019-04-04 12:33 | OT.IP.TRT ---
Occupational Therapy Treatment Note M3 OT- IP Subjective and Pain Start: 04/04/19 12:19 Freq: Status: Active Protocol: Document 04/04/19 12:19 [facility] (Rec: 04/04/19 12:33 [facility] [id number]) OT- Subjective Occupational Therapy Visit Type Type Treatment Note Visit Start Time 12:05 Visit Stop Time 12:15 Total Visit Minutes 10 Occupational Therapy Visit Comments Patient Comments Pt states feels back to normal just mainly tired from not sleepy well. OT Pain Assessment Pain When Pain Assessed At Rest Pain Present Pain Present Denied Pain M6 OT- IP Functional Cognition Start: 04/04/19 12:19 Freq: Status: Active Protocol: Document 04/04/19 12:19 [facility] (Rec: 04/04/19 12:33 [facility] [id number]) Cognitive Factors Limiting Selfcare Function Cognitive Ability Level of Alertness Alert Patient Orientation Name Age Birthday Month Date Year Day of Week Place Situation Attention Span Ability Capable of Focused Attention Capable of Sustained Attention Ability to Follow Commands Able to Follow Multi-Step Commands Memory Description No Deficits Noted Safety Awareness No Deficits Noted Problem Solving Ability No deficits Noted Executive Function Ability No Deficits Noted Cognitive Comments Cognitive Assessment Comments Pt able scored 82 seconds on the [place] making Part B which implies mild to moderate deficits for visual attention, task switching, speed of processing, executive function and mental flexibility. Pt feels that since she has not slept well is why she it ttok her longer to complete. Able to educate pt on energy conservation, work simplification and making sure to include eye breaks as she usually on the computer for hours at a time. M9 OT- IP Assessment and Plan Start: 04/04/19 12:19 Freq: Status: Active Protocol: Document 04/04/19 12:19 [facility] (Rec: 04/04/19 12:33 [facility] [id number]) OT Summary Assessment and Plan Summary Assessment Summary Pt low complexity and feels back to baseline, and mainly just tired from not sleeping well. Pt to discharge home when medically stable. No further OT indicated at this time.
[2019-04-04 12:59] LABS: BUN Creatinine Ratio 22.5 (6-22); Blood Urea Nitrogen 18 mg/dL (7-17); Calcium 9.4 mg/dL (8.4-10.2); Carbon Dioxide 27 mmol/L (22-32); Chloride 103 mmol/L (98-107); Cholesterol 221 mg/dL (140-199); Estimated Glomerular Filt Rate > 60.0 mL/min (>60); Glucose 108 mg/dL (70-100); HDL Cholesterol 46 mg/dL (40-60); HEMOLYSIS 24 (0-50); LDL Cholesterol Calculated 152 mg/dL (<100); Sodium 139 mmol/L (137-145); Triglycerides 113 mg/dL (35-150)
[2019-04-04 13:14] LABS: Free T4, Direct Thyroxine 0.57 ng/dL (0.78-2.19)
--- NOTE | 2019-04-04 16:17 | P.DS_ITS ---
History of Present Illness Date Patient Seen: 04/04/19 Chief complaint: NAUSEA, NOT FEELING RIGHT Narrative: Ms. Shannon Eden is a 58-year-old female patient with history significant for hypertension, hypothyroidism, left breast cancer stage III post chemotherapy obstructive sleep apnea on CPAP presents to the ER after developing an episode of double vision this evening. Patient states she had a both visual changes consisting of diplopia with both eyes open however describes normal vision in each eye with the other eye covered. She had associated mild headache but denies nausea or dizziness, dysphagia or dysarthria, no weakness numbness or tingling or ataxia. The episode lasted approximately 10-12 minutes and resolved spontaneously. The patient has a history of breast cancer stage III which has been treated with bilateral mastectomy and chemotherapy which has since been completed. She does has been followed by Dr. Fernandez after developing elevated troponins during chemotherapy and has had ongoing surveillance. She does endorse an episode of left lateral chest pain which she believes to be chest wall and may be related to her previous surgery. She also describes having brief episodes of palpitations in the form of rapid heart rate that her self terminating stating she is unsure as of the palpitations really present or if she is imagining it. She denies any complaints of fevers or chills, nasal congestion or sore throat. She has had no shortness of breath cough or wheezing. She denies abdominal pain, nausea vomiting, diarrhea or constipation. She denies dysuria. She does wear a left arm sleeve for lymphedema management. Upon arrival in the ER the patient is afebrile 98.6 with heart rate is 82 and blood pressure 146/72. Respirations are 22 with an oxygen saturation 97% on room air. She did have a head CT completed which found no acute intracranial pathology. She had laboratory testing done which finds normal white count at 8.7 with a hemoglobin of 13.1 hematocrit 38.8 with platelets of 199. Her chemistries are notable for a low potassium of 2.9 for which she sees 4 mil equivalents p.o. in the ER with a normal sodium 138, BUN of 26 and creatinine 1.1 with a EGFR of 512. Her nonfasting glucose is 125 and she has a magnesium level of 2.4. Her liver functions were all within normal limits as were her troponin and CK. The ER provider did speak the [place] Stroke team. The patient is admitted for rule out TIA and treatment of hypokalemia. Discharge Providers Date of admission: 04/04/19 01:58 Discharge Date: 04/04/19 Primary care physician: Swetha Escalante MD Consults: 04/04/19 02:47 Consult to Dietitian, Adult Routine Comment: Reason For Exam: Morbid Obesity BMI 46.6 04/04/19 02:48 Consult to Discharge Planning Routine Comment: Consult to Occupational Therapy Evaluate & Treat Comment: TIA, visual disturbance Physician Instructions: Evaluate and treat Consult to Physical Therapy Evaluate & Treat Comment: Physician Instructions: Evaluate and Treat 04/04/19 02:50 Consult to Speech Therapy Evaluate & Treat Comment: Physician Instructions: Evaluate and treat Discharge provider: Kinjal Cook MD Summary Discharge Diagnosis: 1. Probable TIA 2. Hypertension 3. History of breast cancer 4. Hypothyroid 5. Obstructive sleep apnea 6. Morbid obesity Hospital Course: Patient was admitted to the hospital for evaluation of blurred vision, visual changes with abrupt onset. Symptoms completely resolved prior to hospitalization she had no further symptoms in the hospital. She had no weakness knee numbness tingling or speech disturbance. Patient was admitted to the hospital for rule out TIA. Her head CT initially was negative. Patient had an MRI of the brain which was also negative. She had an echocardiogram which showed normal LV function. Patient was given Plavix initially. She was maintained on her usual blood pressure medications. She was started on a statin medication. 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 She had no further complaints at this time. Patient was found to be hypothyroid. Her serum thyroid level was over 80. Her T3 and T4 levels were low. Patient will be started on Synthroid at 75 mcg per day. She was also found to have hyperlipidemia. She was started on a statin as well. She will follow up with the PCP for further evaluation. Exam Vital Signs (past 8 hours): - 04/04/19 15:40 Temperature 97.4 F L Pulse Rate 68 Respiratory Rate 68 H Blood Pressure 151/93 H Pulse Oximetry 99 Oxygen Delivery Method Room Air Narrative Exam Narrative: Pleasant female in no acute distress HEENT: Normocephalic atraumatic, extraocular muscles are intact, oropharynx is clear Lungs: Clear to auscultation Cardiac exam: Regular rate and rhythm normal S1-S2 with a 2/6 systolic ejection murmur Abdomen soft nontender nondistended Extremity no edema Neurological exam nonfocal Objective Labs Result Diagrams: 04/03/19 23:19 04/04/19 12:33 Labs: Laboratory Results - last 24 hr 04/03/19 04/03/19 04/03/19 23:19 23:19 23:19 WBC 8.7 RBC 4.19 Hgb 13.1 Hct 38.8 MCV 92.6 MCH 31.4 MCHC 33.9 RDW 13.2 Plt Count 199 Neut % (Auto) 72.6 Lymph % (Auto) 19.1 L [place] % (Auto) 6.8 Eos % (Auto) 1.1 L Baso % (Auto) 0.4 Neut # (Auto) 6300 Lymph # (Auto) 1700 [place] # (Auto) 600 Eos # (Auto) 100 Baso # (Auto) 0 Sodium 138 Potassium 2.9 L Chloride 101 Carbon Dioxide 28 BUN 26 H Creatinine 1.10 H Estimated GFR 51.2 L BUN/Creatinine Ratio 23.6 H Glucose 125 H Calcium 9.3 Magnesium 2.4 H Total Bilirubin 0.6 AST 28 ALT 20 Alkaline Phosphatase 67 Total Creatine Kinase 92 CK-MB (CK-2) TNP CK-MB (CK-2) Rel Index TNP Troponin I < 0.012 Total Protein 7.5 Albumin 4.2 Globulin 3.3 Albumin/Globulin Ratio 1.3 Triglycerides Cholesterol LDL Cholesterol, Calc HDL Cholesterol Lipase 126 TSH Free T4 Free T3 04/03/19 04/04/19 04/04/19 23:19 12:33 12:33 WBC RBC Hgb Hct MCV MCH MCHC RDW Plt Count Neut % (Auto) Lymph % (Auto) [place] % (Auto) Eos % (Auto) Baso % (Auto) Neut # (Auto) Lymph # (Auto) [place] # (Auto) Eos # (Auto) Baso # (Auto) Sodium 139 Potassium 4.0 Chloride 103 Carbon Dioxide 27 BUN 18 H Creatinine 0.80 Estimated GFR > 60.0 BUN/Creatinine Ratio 22.5 H Glucose 108 H Calcium 9.4 Magnesium Total Bilirubin AST ALT Alkaline Phosphatase Total Creatine Kinase CK-MB (CK-2) CK-MB (CK-2) Rel Index Troponin I Total Protein Albumin Globulin Albumin/Globulin Ratio Triglycerides 113 Cholesterol 221 H LDL Cholesterol, Calc 152 H HDL Cholesterol 46 Lipase TSH 84.20 H 74.80 H Free T4 0.58 L 0.57 L Free T3 2.42 L Discharge Plan Discharge Plan Patient Disposition: Home Discharge Med Rec/Prescriptions Prescriptions: New atorvastatin [Lipitor] 20 mg Tablet 40 mg PO BEDTIME Qty: 30 RF: 0 aspirin 81 mg Tablet,Delayed Release (Dr/Ec) 81 mg PO DAILY Qty: 30 RF: 0 levothyroxine [Synthroid] 75 mcg tablet 75 mcg PO DAILY Qty: 30 RF: 0 Continued [COQ10] 200 mg PO Q DAY Qty: 0 RF: 0 lorazepam [Ativan] 0.5 MG tablet 0.5 mg PO QDAY MDD a PRN (Reason: Anxiety) Qty: 0 RF: 0 Ovega-3 500-270-135 mg Capsule 1 cap PO QDAY Qty: 0 RF: 0 [PREBIOTIC] 400 mg PO Q DAY Qty: 0 RF: 0 [APEX WATER] 1 cap PO Q DAY Qty: 0 RF: 0 letrozole [Femara] 2.5 MG tablet 2.5 mg PO QDAY Qty: 90 RF: 2 metoprolol succinate 100 mg tablet extended release 24 hr 100 mg PO DAILY RF: 0 losartan 100 mg Tablet 100 mg PO DAILY RF: 0 chlorthalidone 25 mg Tablet 25 mg PO DAILY RF: 0 iodine-sodium iodide [iodine] 2 % Tincture 1 - 5 drp/day DAILY RF: 0 cholecalciferol (vitamin D3) [Vitamin D3] 2,000 unit Capsule 4,000 unit PO DAILY RF: 0 Cataplex B RF: 0 Cataplex E RF: 0 Follow up/Referrals: Swetha Escalante MD [Primary Care Provider] - Provider Discharge Instructions Diet: Low-fat, Low-sodium and Low-cholesterol Activity: as tolerated Visit Report/Discharge Packet Instructions: DI for Transient Ischemic Attack, DI for Hypokalemia, Atorvas tatin, Clopidogrel Visit Report Forms: Stroke Signs & Symptoms Discharge Data Primary Care Provider: Swetha Escalante Attending Provider: Maksim Posadas Admit Date/Time: 04/04/19 01:58 Quality VTE Deep Vein Thrombosis/Pulmonary Embolism Present on Admission: No
--- NOTE | 2019-04-04 18:44 | PC.NURSE ---
Pt denies diplopia, donovan, weakness; speech clear and gait steady; Tele SR; VSS; patient education includes TIA, hypokalemia, plavix, statin, and fu care; pt escorted at to private vehicle with belongings in hand.
--- NOTE | 2019-04-05 09:03 | CM.DANOTE ---
Discharge Planning/Care Management Late Entry: DCP: assessment: Case received yesterday, EMR reviewed. Discussed POC in Team Rounds. 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 PCP: Swetha Escalante Payer: [facility] Pt admitted with some visual disturbances, workup was planned and OT/PT/MONORAIL HOOKER was ordered. A check in this morning (04/05) shows that pt was cleared for home setting/see OT notes for specifics and Dr. Cook did ok pt for home in late afternoon. No d/c concerns were identified by the care team members. CM Discharge Assessment Start: 04/05/19 09:03 Freq: Status: Active Protocol: Document 04/05/19 09:03 ITV (Rec: 04/05/19 09:03 ITV [id number]) Discharge Planning Assessment Advance Directives? Yes Advance Directives on File Yes History Provided By Medical Record Prior Living Arrangements House Household Members none
[2019-04-06 15:02] LABS: Thyroid Peroxidase Antibodies 1 IU/mL (< 9)
[2019-04-07 10:21] LABS: Triiodothyronine T3 Total 73 ng/dL (76-181)
== END 2019-04-04 18:46 | disposition home or self-care (01) ==
LOC: ED 04-04 01:39 → AC 04-04 02:00
PROVIDERS: Admitting Provider Nurse Practitioner Adult Health; Emergency Provider Emergency Medicine; Family Provider Family Medicine; PCP Family Medicine; Visit Provider Nurse Practitioner Adult Health
DX: H53.2 Diplopia (principal); R51 Headache; R11.0 Nausea; I10 Essential (primary) hypertension; E87.6 Hypokalemia; E03.9 Hypothyroidism, unspecified; G47.33 Obstructive sleep apnea (adult) (pediatric); Z85.3 Personal history of malignant neoplasm of breast; E66.01 Morbid (severe) obesity due to excess calories; Z68.42 Body mass index [BMI] 45.0-49.9, adult
CPT/HCPCS: 36415; 70450; 70548; 70553; 71045; 80048; 80053; 80061; 81003; 82550; 83690; 83735; 84439; 84443; 84480; 84481; 84484; 85025; 86376; 92610; 93005; 93306; 96360; 96361; 97161; 97530; 99283; 99285; G0378; A9579; J3480

== ENCOUNTER → 2019-08-08 09:50 | Outpatient (CLI) | payer OTHER, SELFPAY ==
[2019-04-04 03:46] VITALS: BMI 46.6
== END ==
PROVIDERS: PCP Family Medicine; Visit Provider Internal Medicine Hematology & Oncology
DX: Z78.0 Asymptomatic menopausal state (principal); Z82.62 Family history of osteoporosis; Z87.891 Personal history of nicotine dependence
CPT/HCPCS: 77080; 77081

== ENCOUNTER → 2020-01-08 11:28 | Outpatient (CLI) | payer OTHER, SELFPAY ==
[2019-04-04 03:46] VITALS: BMI 46.6
--- NOTE | 2020-01-08 11:29 | DI.CT.S_ITS ---
PROCEDURE: CT CHEST ABD PEL W CON INDICATIONS: History of breast cancer now with cough, and upper chest pain. TECHNIQUE: After the administration of oral and intravenous contrast, 5 mm thick sections acquired from the lung apices to the symphysis. 5 mm coronal and sagittal reformats were performed, with additional 7 mm coronal MIP reformats through the lungs. For radiation dose reduction, the following was used: automated exposure control, adjustment of mA and/or kV according to patient size. COMPARISON: [facility], CT, CHEST/ABD/PEL WITH CONTRAST, 01/06/2018, 7:58. [facility], CT, CT CHEST ABD PEL W CON, 06/07/2018, 13:59. [facility], CT, CT CHEST ABD PEL W CON, 01/31/2019, 14:38. FINDINGS: Image quality: Excellent. CHEST: Lungs and pleura: There is linear scarring anteriorly within the left upper lobe and lingula are redemonstrated as well as mild scarring within the lung apices. There are a few scattered pulmonary nodules redemonstrated including a right lower lobe nodule extending to the major fissure on series 3 image 162 measuring up to 6 mm. A 4 mm nodule is demonstrated in the right lower lobe on image 153. In addition within the right lower lobe, small 2 mm nodules are demonstrated on image 133, 139, 175, 195, and 196. In the left lower lobe, there is a 3 mm nodule on image 171. These appear similar in size compared to the prior studies given differences in technique. No new suspicious masses lesions. No pleural effusions or pneumothorax. Central and peripheral airways appear patent and normal in caliber. Mediastinum: Heart size is normal. No pericardial effusion. No mediastinal or hilar adenopathy by size criteria. Thoracic aorta and central pulmonary arteries are normal in size. Esophagus is normal in caliber. No hiatal hernia. Chest wall: There are postsurgical changes in the anterior chest wall and axilla bilaterally. No axillary or supraclavicular adenopathy by size criteria. ABDOMEN: Solid organs: Evaluation of the liver demonstrates no focal hepatic lesions. The gallbladder is surgically absent. Biliary system is non-dilated. Pancreas enhances normally. No peripancreatic fat stranding or fluid collections. No pancreatic duct dilatation. The spleen is normal in size. No adrenal nodules. Kidneys demonstrate no hydronephrosis. Peritoneum and bowel: Bowel loops demonstrate normal wall thickness and caliber. The appendix is normal in appearance. There is colonic diverticulosis without acute diverticulitis. No free fluid or air. Nodes and vessels: No retroperitoneal or mesenteric adenopathy by size criteria. Aorta and inferior vena cava are normal in size. Miscellaneous: No ventral hernias. PELVIS: Genitourinary: Bladder wall thickness is normal. Miscellaneous: No inguinal hernias or adenopathy. Bones: No suspicious bony lesions. No vertebral body compression fractures. IMPRESSION: 1. No definite evidence of new recurrent or metastatic disease. 2. Multiple small bilateral pulmonary nodules appear stable compared to prior studies given differences in technique. Dictated by: Dany Van M.D. on 01/08/2020 at 16:21 Approved by: Dany Van M.D. on 01/08/2020 at 16:32
== END ==
PROVIDERS: PCP Family Medicine; Referring Provider Internal Medicine Hematology & Oncology; Visit Provider Internal Medicine Hematology & Oncology
DX: C50.412 Malignant neoplasm of upper-outer quadrant of left female breast; R05 Cough; R07.89 Other chest pain; R91.8 Other nonspecific abnormal finding of lung field; Z17.0 Estrogen receptor positive status [ER+]; Z90.49 Acquired absence of other specified parts of digestive tract
CPT/HCPCS: 71260; 74177; Q9967

== ENCOUNTER → 2020-04-15 10:08 | Outpatient (CLI) | payer OTHER, SELFPAY ==
[2019-04-04 03:46] VITALS: BMI 46.6
--- NOTE | 2020-04-15 10:10 | DI.NM.S_ITS ---
PROCEDURE: [place] BONE SCAN WHOLE BODY RADIOPHARMACEUTICAL: 20.1 mCi Tc-99m MDP IV. INDICATIONS: left shoulder left upper arm deep bone pain, breast canc TECHNIQUE: Delayed whole-body scintigrams were obtained approximately 3-4 hours after intravenous injection of radiotracer. Anterior and posterior views were acquired from vertex to feet. Additional left and right oblique views of the cervical spine and thoracic cage were obtained. COMPARISON: [place], [place], BONE SCAN WHOLE BODY, 01/06/2018, 11:24. FINDINGS: No lesions are identified in skull, sternum, clavicles, scapulae, ribs, bony pelvis, and visualized shafts of the long bones. There is increased uptake in cervical, thoracic and lumbar spine with distribution indistinguishable from degenerative disc and facet disease; early metastasis to spine could be obscured by degenerative changes. There are foci of increased periarticular activity involving shoulders bilaterally, sternoclavicular joints bilaterally, knees bilaterally and feet bilaterally, compatible with degenerative/arthritic changes. IMPRESSION: 1. No definitive scintigraphic findings to suggest osseous metastasis. 2. Degenerative/arthritic changes as described. Dictated by: Erinn Dwyer M.D. on 04/15/2020 at 17:07 Approved by: Erinn Dwyer M.D. on 04/15/2020 at 17:10
== END ==
PROVIDERS: PCP Family Medicine; Referring Provider Internal Medicine Hematology & Oncology; Visit Provider Internal Medicine Hematology & Oncology
DX: M79.622 Pain in left upper arm (principal); M25.512 Pain in left shoulder; C50.412 Malignant neoplasm of upper-outer quadrant of left female breast; Z17.0 Estrogen receptor positive status [ER+]
CPT/HCPCS: 78306; A9503

== ENCOUNTER → 2020-08-07 12:42 | Outpatient (CLI) | payer OTHER, SELFPAY ==
[2019-04-04 03:46] VITALS: BMI 46.6
--- NOTE | 2020-08-07 | DI.ECHO.S_ITS ---
[facility] +---------+ : : [address] : : : : [id number] : : : : Phone: [phone] Echocardiogram Report + + :Name: STEPHANIE PUENTES Study Date: 08/07/2020 Height: 63 in : :[facility] Weight: 238 lb: : Gender: Female BSA: 2.1 m2 : :: 1960 Age: 59 yrs : :Reason For Study: Breast Cancer, Ventricular premature beats : :Ordering Physician: BHUMI, : :CARLOS MANUEL Performed By: Ginger Enriquez : :Referring: LYNDON PALMA : + + Interpretation Summary 1) Normal left ventricular thickness, size, wall motion, and systolic function (EF 55-60%). 2) Normal right ventricular size and function. 3) No significant valvular abnormalities. 4) Compared to the Echo done 04/04/2019, no significant change. Procedure: A two-dimensional transthoracic echocardiogram with color flow and Doppler was performed in limited views only. The study quality was technically adequate. Comparison is made with the echocardiogram of 04/04/2019. The heart rate ranged between 58-69 bpm during the study. Left Ventricle: The left ventricle is normal in size and wall thickness. The ejection fraction is estimated to be 55-60%. Left ventricular systolic function is normal without focal wall motion abnormalities. Right Ventricle: The right ventricle is normal in size and function. Atria: Both atria are normal in size. There is no Doppler evidence for an interatrial shunt. Mitral Valve: The mitral valve is normal in structure and function. There is trace mitral regurgitation. Aortic Valve: The aortic valve is trileaflet. The aortic valve opens well. There is no aortic valve stenosis. There is trace aortic regurgitation. Tricuspid Valve: The tricuspid valve is normal in structure and function. The right ventricular systolic pressure is estimated to be at least 25 mmHg based on an estimated right atrial pressure of 3 mm Hg. There is mild tricuspid regurgitation. Pulmonic Valve: The pulmonic valve leaflets are thin and pliable; valve motion is normal. There is no pulmonic valvular regurgitation. Great Vessels: The aortic root is normal size. The ascending aorta is at the upper limits of normal in size. The IVC is of normal diameter and collapses greater than 50% with a sniff. This suggests a low right atrial pressure of 3 mm Hg. Pericardium/ Pleura There is no pericardial effusion. There is no pleural effusion. MMode/2D Measurements & Calculations LVIDd: 5.0 cm LVOT diam: 2.0 cm LVIDs: 3.2 cm Ao root diam: 2.9 cm FS: 36.0 % asc Aorta Diam: 3.5 cm EPSS: 0.59 cm Ao Arch Diam (Prox Trans): 2.8 cm IVSd: 0.74 cm LVPWd: 0.80 cm LV ortiz. diameter/BSA (cm/m^2): 2.4 LV sys. diameter/BSA (cm/m^2): 1.5 LA A2 area: 22.6 cm2 RA long axis: 4.5 cm LA A4 area: 18.3 cm2 RA area: 15.4 cm2 LA length (vol): 5.6 cm RA vol: 44.4 ml LA vol: 63.1 ml RA : 21.3 ml/m2 LA vol index: 30.3 ml/m2 IVC diam: 1.2 cm RVD1 (basal): 3.9 cm TAPSE: 1.9 cm Doppler Measurements & Calculations Ao V2 max: 197.3 cm/sec LVOT Max Rajesh: 117.7 cm/sec Ao V2 mean: 128.4 cm/sec LV V1 max P.5 mmHg Ao max P.6 mmHg LV V1 VTI: 24.6 cm Ao mean P.8 mmHg MARIA LUISA(I,D): 1.7 cm2 Ao V2 VTI: 45.1 cm MARIA ULISA(V,D): 1.9 cm2 sev ratio: 0.55 MARIA LUISA indexed to BSA (cm^2/m^2): 0.82 MV E max rajesh: 70.5 cm/sec TR max rajesh: 235.4 cm/sec MV A max rajesh: 70.5 cm/sec TR max P.2 mmHg MV E/A: 1.0 PA V2 max: 71.0 cm/sec Med Peak E' Rajesh: 7.7 cm/sec PA V2 mean: 47.5 cm/sec E/E' med: 9.1 PA mean P.0 mmHg Lat Peak E' Rajesh: 10.8 cm/sec PA pr(Accel): 13.9 mmHg E/E' lat: 6.6 E/e' average: 7.9 MV dec time: 0.20 sec SV(LVOT): 76.6 ml Reading Physician:10:43 AM
--- NOTE | 2020-08-07 12:43 | DI.CT.S_ITS ---
PROCEDURE: CT CHEST ABD PEL W CON INDICATIONS: breast cancer TECHNIQUE: After the administration of oral and intravenous contrast, 5 mm thick sections acquired from the lung apices to the symphysis. 5 mm coronal and sagittal reformats were performed, with additional 7 mm coronal MIP reformats through the lungs. For radiation dose reduction, the following was used: automated exposure control, adjustment of mA and/or kV according to patient size. COMPARISON: [facility], CT, THORAX WITHOUT CONTRAST, 09/09/2016, 12:44. [facility], CT, CHEST/ABD/PEL WITH CONTRAST, 01/06/2018, 7:58. [facility], CT, CT CHEST ABD PEL W CON, 01/08/2020, 12:28. FINDINGS: Image quality: Excellent. CHEST: Lungs and pleura: Pulmonary scarring is present at the left apex unchanged from the study dated January 08, 2020. 5 mm pulmonary nodule at the lateral right lung base is unchanged from the study dated January 06, 2018. 3 mm pulmonary nodule at the lingular bases unchanged from 2018. No new pulmonary nodules. No acute airspace opacities. No pleural effusion or pneumothorax. Pulmonary scar in the left upper lobe is unchanged from multiple prior studies. Mediastinum: Heart size is normal. No pericardial effusion. No mediastinal or hilar adenopathy by size criteria. Thoracic aorta and central pulmonary arteries are normal in size. Scattered atheromatous calcifications are present within the aortic arch. Esophagus is normal in caliber. No hiatal hernia. Chest wall: No axillary or supraclavicular adenopathy by size criteria. Patient is status post bilateral mastectomy and axillary tasha dissection. gland is unremarkable . ABDOMEN: Solid organs: Liver is normal in size and enhancement. Gallbladder is surgically absent . Biliary system is non dilated. Pancreas enhances normally. Spleen is normal in size and enhancement. No adrenal nodules. Kidneys demonstrate normal size and enhancement, without hydronephrosis. Peritoneum and bowel: Bowel loops demonstrate normal wall thickness and caliber. The appendix is thin walled and contrast filled. There are scattered sigmoid diverticula. No evidence for diverticulitis. No free fluid or air. Nodes and vessels: No retroperitoneal or mesenteric adenopathy by size criteria. Aorta and inferior vena cava are normal in size. There are scattered atheromatous calcifications throughout the aorta and iliac arteries bilaterally. Miscellaneous: No ventral hernias. PELVIS: Genitourinary: Bladder wall thickness is normal. Miscellaneous: No inguinal hernias or adenopathy. Bones: No suspicious bony lesions. No vertebral body compression fractures. IMPRESSION: 1. No findings to suggest tumor recurrence or new metastasis. Dictated by: Inga Ordaz M.D. on 08/07/2020 at 15:43 Approved by: Inga Ordaz M.D. on 08/07/2020 at 15:55
== END ==
PROVIDERS: PCP Family Medicine; Referring Provider Family Medicine; Visit Provider Internal Medicine Hematology & Oncology
DX: C50.919 Malignant neoplasm of unspecified site of unspecified female breast (principal); I07.1 Rheumatic tricuspid insufficiency; I49.3 Ventricular premature depolarization; R10.9 Unspecified abdominal pain; Z90.49 Acquired absence of other specified parts of digestive tract
CPT/HCPCS: 71260; 74177; 93306; Q9967

== ENCOUNTER → 2021-01-29 15:00 | Outpatient (CLI) | payer OTHER, SELFPAY ==
[2019-04-04 03:46] VITALS: BMI 46.6
--- NOTE | 2021-01-29 15:02 | DI.MRI.S_ITS ---
PROCEDURE: MR HEAD/BRAIN WO/W CON INDICATIONS: breast cancer, headache, spacey. TECHNIQUE: Noncontrast axial T1 spin echo, axial T2 fast spin echo, sagittal and axial FLAIR, coronal T2 fast spin echo, axial gradient echo, axial diffusion and ADC through the brain. After the administration of contrast, axial and coronal 3D VIBE or T1 spin echo with fat saturation through the brain. COMPARISON: None. FINDINGS: Image quality: Excellent. CSF Spaces: Basal cisterns are patent. No extra-axial fluid collections. Ventricles are normal in size and shape. Brain: No midline shift. No intracranial bleeds or masses. There is mild, diffuse cerebral volume loss. There are mild periventricular and subcortical white matter chronic microvascular ischemic changes. No abnormal intracranial enhancement. The brainstem appears normal. Diffusion-weighted images demonstrate no acute ischemic insults. No chronic ischemic insults. Normal intravascular flow voids are present. Dural sinuses demonstrate normal postcontrast enhancement. Skull and face: Calvarial marrow is normal in signal. Orbits appear normal. Sinuses: Sinuses and mastoids appear clear. IMPRESSION: 1. No acute intracranial disease process. 2. No evidence of metastatic disease with no abnormal intracranial mass, mass effect or suspicious bone/interest enhancement. 3. Mild, diffuse cerebral volume loss. 4. Mild periventricular and subcortical white matter chronic microvascular ischemic change. Dictated by: Jagruti Cain MD, PhD on 01/29/2021 at 16:51 Approved by: Jagruti Cain MD, PhD on 01/29/2021 at 16:55
== END ==
PROVIDERS: PCP Family Medicine; Referring Provider Internal Medicine Hematology & Oncology; Visit Provider Internal Medicine Hematology & Oncology
DX: C50.919 Malignant neoplasm of unspecified site of unspecified female breast (principal); R51.9 Headache, unspecified; Z13.820 Encounter for screening for osteoporosis
CPT/HCPCS: 70553; 77080

== ENCOUNTER → 2021-06-03 09:46 | Outpatient (CLI) | payer OTHER, SELFPAY ==
[2019-04-04 03:46] VITALS: BMI 46.6
--- NOTE | 2021-06-03 09:48 | DI.NM.S_ITS ---
PROCEDURE: [place] BONE SCAN WHOLE BODY RADIOPHARMACEUTICAL: 20 mCi Tc-99m MDP IV. INDICATIONS: Breast cancer. Patient complains of sternum pain. TECHNIQUE: Delayed whole-body scintigrams were obtained approximately 3-4 hours after intravenous injection of radiotracer. Anterior and posterior views were acquired from vertex to feet. Additional left and right oblique views of the thorax were obtained. COMPARISON: [place], [place], BONE SCAN WHOLE BODY, 01/06/2018, 11:24. [place], [place] BONE SCAN WHOLE BODY, 04/15/2020, 13:35. FINDINGS: No abnormal uptake involving the sternum. No lesions are identified in skull, clavicles, scapulae, ribs, bony pelvis, and visualized shafts of the long bones. There is low level increased uptake in cervical, thoracic and lumbar spine with distribution indistinguishable from degenerative disc and facet disease; early metastasis to spine could be obscured by degenerative changes. There are foci of increased periarticular activity involving shoulders, sternoclavicular joints, hips, SI joints, knees, ankles and feet, compatible with degenerative/arthritic changes. IMPRESSION: 1. A cause for sternal pain is not identified. 2. No scintigraphic findings to suggest osseous metastasis. Dictated by: Erinn Dwyer M.D. on 06/03/2021 at 16:11 Approved by: Erinn Dwyer M.D. on 06/03/2021 at 16:14
== END ==
PROVIDERS: PCP Family Medicine; Referring Provider Internal Medicine Hematology & Oncology; Visit Provider Internal Medicine Hematology & Oncology
DX: C50.912 Malignant neoplasm of unspecified site of left female breast (principal); R07.89 Other chest pain
CPT/HCPCS: 78306; A9503

== ENCOUNTER → 2021-07-27 14:50 | Outpatient (CLI) | payer OTHER, SELFPAY ==
[2019-04-04 03:46] VITALS: BMI 46.6
--- NOTE | 2021-07-27 | DI.ECHO.S_ITS ---
[facility]---------+ [facility] +---------+ : : [address] : : : : [id number] : : : : Phone: [phone]+ Echocardiogram Report + + :Name: STEPHANIE PUENTES Study Date: 07/27/2021 Height: 62 in : :[facility] ReadingLocation: Weight: 240 lb : : Gender: Female BSA: 2.1 m2 : :: 1960 Age: 60 yrs BP: 162/107 mmHg: :Reason For Study: CANCER : :Ordering Physician: Carlos Manuel : :Dianne Fernandez Performed By: Kelvin Javed : :Referring: CARLOS MANUEL FERNANDEZ : + + Interpretation Summary 1) Normal left ventricular thickness, size, wall motion, and systolic function (EF 55-60%). 2) Normal right ventricular size and function. 3) No significant valvular abnormalities. 4) Compared to the Echo done 08/07/2020, no significant change. Procedure: A two-dimensional transthoracic echocardiogram with color flow and Doppler was performed. The study quality was technically adequate. Comparison is made with the echocardiogram of 08/07/2020. A contrast injection of Definity was performed to improve assessment of LV function. Left Ventricle: The left ventricle is normal in size and wall thickness. Left ventricular systolic function is normal. The ejection fraction is estimated to be 55-60%. There are no focal wall motion abnormalities. Diastolic parameters suggest probable normal left ventricular diastolic function and normal filling pressures. Right Ventricle: The right ventricle is normal in size and function. Atria: The left atrium is mildly dilated. Right atrial size is normal. There is no Doppler evidence for an interatrial shunt. Mitral Valve: The mitral valve is normal in structure and function. There is trace mitral regurgitation. Aortic Valve: There is mild aortic valve sclerosis. There is no aortic valve stenosis. There is trace aortic regurgitation. Tricuspid Valve: The tricuspid valve is normal in structure and function. There is mild tricuspid regurgitation. The right ventricular systolic pressure is estimated to be at least 25 mmHg based on an estimated right atrial pressure of 3 mm Hg. Pulmonic Valve: The pulmonic valve is normal in structure and function. There is no pulmonic valvular regurgitation. Great Vessels: The aortic root is normal size. The ascending aorta is at the upper limits of normal in size. The IVC is of normal diameter and collapses greater than 50% with a sniff. This suggests a low right atrial pressure of 3 mm Hg. Pericardium/ Pleura There is no pericardial effusion. There is no pleural effusion. MMode/2D Measurements & Calculations LVIDd: 5.2 cm Ao root diam: 2.7 cm LVIDs: 3.7 cm asc Aorta Diam: 3.6 cm FS: 28.8 % IVSd: 0.80 cm LVPWd: 0.80 cm LV ortiz. diameter/BSA (cm/m^2): 2.5 LV sys. diameter/BSA (cm/m^2): 1.8 LA dimension: 2.7 cm RA long axis: 4.9 cm LA A2 area: 22.9 cm2 RA area: 15.5 cm2 LA A4 area: 21.1 cm2 RA vol: 42.0 ml LA length (vol): 5.6 cm RA : 20.3 ml/m2 LA vol: 73.8 ml LA vol index: 35.7 ml/m2 LVLs ap4: 7.2 cm LVLd ap2: 8.1 cm LVLs ap2: 6.6 cm TAPSE_phl: 2.5 cm Doppler Measurements & Calculations Ao V2 max: 168.0 cm/sec LVOT Max Rajesh: 114.0 cm/sec Ao V2 mean: 123.0 cm/sec LV V1 max P.2 mmHg Ao max P.0 mmHg LV V1 VTI: 24.8 cm Ao mean P.0 mmHg sev ratio: 0.66 Ao V2 VTI: 37.5 cm MV E max rajesh: 92.6 cm/sec TR max rajesh: 236.0 cm/sec MV A max rajesh: 90.7 cm/sec TR max P.3 mmHg MV E/A: 1.0 PA V2 max: 156.0 cm/sec Med Peak E' Rajesh: 8.2 cm/sec PA V2 mean: 108.0 cm/sec E/E' med: 11.3 PA mean P.0 mmHg Lat Peak E' Rajesh: 11.5 cm/sec PA pr(Accel): 32.6 mmHg E/E' lat: 8.1 E/e' average: 9.7 MV dec time: 0.17 sec AV VR_phl: 0.68 MV P1/2t-pr_phl: 50.0 msec Reading Physician:05:24 PM
== END ==
PROVIDERS: PCP Family Medicine; Referring Provider Internal Medicine Cardiovascular Disease; Visit Provider Internal Medicine Cardiovascular Disease
DX: I49.3 Ventricular premature depolarization (principal); I08.2 Rheumatic disorders of both aortic and tricuspid valves
CPT/HCPCS: C8929; Q9957

== ENCOUNTER → 2021-07-28 09:56 | Outpatient (CLI) | payer OTHER, SELFPAY ==
[2019-04-04 03:46] VITALS: BMI 46.6
--- NOTE | 2021-07-28 09:57 | DI.CT.S_ITS ---
PROCEDURE: CT CHEST ABD PEL W CON INDICATIONS: 60-year-old female with history of treated breast cancer, right-sided paresthesia, ovarian cysts TECHNIQUE: After the administration of oral and intravenous contrast, axial sections acquired from the supraclavicular neck to the pubic symphysis. Coronal and sagittal reformats were performed. For radiation dose reduction, the following was used: automated exposure control, adjustment of mA and/or kV according to patient size. COMPARISON:[facility], CT, CT CHEST ABD PEL W CON, 08/07/2020, 14:38. FINDINGS: Image quality: Excellent. CHEST: Lower Neck: No enlarged lymph nodes. Thyroid: Within normal limits. Axillae: No enlarged lymph nodes. Chest Wall: Bilateral mastectomy and axillary lymph node dissection with surgical clips remain unchanged. Lungs and Airways: Small 5 mm right lower lobe subpleural nodule and 3 mm nodule in the left lower lobe costophrenic sulcus remains unchanged the prior exam. No new nodules. Linear scarring in the left upper lobe lingular segment also remains stable from prior. Pleura: No pneumothorax or pleural effusions. Heart: Heart size is normal. No pericardial effusion. Thoracic Vessels: The aorta and pulmonary arteries demonstrate normal size. Mediastinum and Jeane: No enlarged lymph nodes. Esophagus: No wall thickening. No hiatal hernia. ABDOMEN: Liver: Unremarkable. Gallbladder: Cholecystectomy. Biliary ducts: Unremarkable. Pancreas: Unremarkable. Spleen: Unremarkable. Adrenal Glands: Unremarkable. Kidneys and Ureters: Unremarkable. Stomach and Bowel: Stomach, small bowel loops, and colon are unremarkable. Peritoneum: No abnormal intraperitoneal fluid. No free air. Ventral Wall: No hernia. Abdominal Nodes: No retroperitoneal or mesenteric adenopathy by size criteria. Vessels: Aorta and inferior vena cava are normal in size. PELVIS: Pelvic Organs: Unremarkable. Bladder: Unremarkable. Pelvic Nodes: No enlarged lymph nodes. Miscellaneous: No inguinal hernias are seen. Bones: Unremarkable. IMPRESSION: 1. Stable CT of the chest, abdomen and pelvis without evidence of metastatic disease. 2. Small subpleural pulmonary nodules and left upper lobe pulmonary scarring remains unchanged from the prior. 3. Surgical changes include bilateral mastectomy and axillary lymph node dissection, cholecystectomy Approved by: Silverio Gibbons M.D. on 07/28/2021 at 12:25
== END ==
PROVIDERS: PCP Family Medicine; Referring Provider Internal Medicine Hematology & Oncology; Visit Provider Internal Medicine Hematology & Oncology
DX: C50.919 Malignant neoplasm of unspecified site of unspecified female breast (principal); R91.8 Other nonspecific abnormal finding of lung field; R20.2 Paresthesia of skin; N83.209 Unspecified ovarian cyst, unspecified side; Z90.13 Acquired absence of bilateral breasts and nipples; Z90.49 Acquired absence of other specified parts of digestive tract
CPT/HCPCS: 71260; 74177

== ENCOUNTER 2021-09-15 11:51 | Outpatient (RCR) | payer OTHER, SELFPAY ==
[2019-04-04 03:46] VITALS: BMI 46.6
--- NOTE | 2021-09-15 12:45 | PT.OIE ---
Current Diagnoses Dizziness and giddiness (09/15/21) Past Medical History (Last Reviewed 04/04/19 @ 03:16 by EDIE Urias) Cancer of left female breast Elevated TSH Hypertension Past Surgical History (Last Reviewed 04/04/19 @ 03:16 by EDIE Urias) History of tonsillectomy Status post breast biopsy Status post cholecystectomy Status post tubal ligation Visit Care Team Role Provider Type L Sylwia Escalante MD Family Provider Non-Staff Primary Care Provider Specialty: Family Practice Address: [address] [place] [address], [address] Email: Ramez West MD Attending Provider Physician Referring Provider Specialty: Ear, Nose, Throat Address: [address] [place] [address], [id number] Email: [email or web address] Physical Therapy Initial Evaluation PT-OP-A Visit Information Start: 09/15/21 17:40 Freq: Status: Active Protocol: Document 09/15/21 12:00 DCW (Rec: 09/15/21 17:41 [facility] [id number]) Out-Patient Physical Therapy Visit Information Visit Information Visit Type Initial Evaluation Visit Start Time 12:00 Visit Stop Time 12:50 Total Visit Minutes 50 Visit Number 1 Number of VOICE INSTRUCTOR Visits 0 Evaluation Information Evaluation Date 09/15/21 PT-OP-B Current Condition Start: 09/15/21 17:40 Freq: Status: Active Protocol: Document 09/15/21 12:00 DCW (Rec: 09/15/21 17:50 [facility] [id number]) Current Condition History of Current Condition Onset Date 5 years Current Complaints Instability with uneven surfaces History of Current Condition Pt is a 60 year old female presenting with a five year history of peripheral neuropathy following chemotherapy. Pt reports she has been using supplements, which greatly helped all the burning and tingling, which used to keep her up at night, but she still notes that her forefeet feel different, like my socks are bunched up under my toes or something, even though they aren't. Pt notes she tends to drift from side- to-side when walking down a sidewalk if she isn't watching her feet, and has difficulty with uneven ground. Pt also has some slight difficulty with fuzziness when rapidly turning her head to either side. Prior Treatments and Tests Pt notes hearing test shows ~ 10% loss in left ear PT-OP-C Subjective Start: 09/15/21 17:40 Freq: Status: Active Protocol: Document 09/15/21 12:00 DCW (Rec: 09/15/21 17:43 DCW [id number]) OP-PT Subjective Patient Comments Patient Comments I'm not exactly sure what I'm doing here, but maybe if you can show me stuff to do at home, I think that is probably what I'm most interested in. Patient Questionnaires Dizziness Handicap Inventory DHI Score 22% DHI Functional Impairment 20 to 39% Impaired (Score 20- 39) PT-OP-D Balance Start: 09/15/21 17:40 Freq: Status: Active Protocol: Document 09/15/21 12:00 DCW (Rec: 09/15/21 17:43 DCW [id number]) OP-PT Balance Assessment Sitting Balance Static Sitting Balance Ability Normal Dynamic Sitting Balance Ability Normal Standing Balance Static Standing Balance Ability Good Dynamic Standing Balance Ability Good Bob Fall Scale Copyright Permission PT-OP-H Neuro Start: 09/15/21 17:40 Freq: Status: Active Protocol: Document 09/15/21 12:00 DCW (Rec: 09/15/21 17:46 DCW [id number]) Sensation Evaluation Gross Sensation Gross Sensation WNL Location Details Right Volar Foot Light Touch Impaired Sharp/Dull Intact/Normal Deep Pressure Intact/Normal Protective Sensation Intact/Normal Proprioception (Position) Intact/Normal Kinesthesia (Movement) Intact/Normal Left Volar Foot Light Touch Impaired Sharp/Dull Intact/Normal Deep Pressure Intact/Normal Protective Sensation Intact/Normal Proprioception (Position) Intact/Normal Kinesthesia (Movement) Intact/Normal PT-OP-O Vestibular Start: 09/15/21 17:40 Freq: Status: Active Protocol: Document 09/15/21 12:00 DCW (Rec: 09/15/21 17:46 DCW [id number]) Vestibular Assessment Visual Testing Smooth Pursuits Horizontal WNL Smooth Pursuits Vertical WNL Saccades Horizontal WNL Saccades Vertical WNL Heave Test Positive Bilateral Thrust Head Positive Bilateral Comments Vestibular Comments Mildly positive Head Impulse Testing PT-OP-Q Treatments Start: 09/15/21 17:50 Freq: Status: Active Protocol: Document 09/15/21 12:00 DCW (Rec: 09/15/21 17:54 DCW [id number]) Self-Care/Home Management Treatment Education Other Education Edu. on balance challenges, neuropathy PT-OP-T Assessment and Plan Start: 09/15/21 17:40 Freq: Status: Active Protocol: Document 09/15/21 12:00 DCW (Rec: 09/16/21 15:45 DCW [id number]) Physical Therapy Assessment Rehab Potential Rehabilitation Potential Good Evaluation Complexity Number of Personal Factors/Comorbidities 1-2 Number of Body Systems Impaired 3 Clinical Presentation at Evaluation Stable Impairments Impairments Balance,Sensation Assessment Summary Assessment Pt presents with signs and symptoms consistent with mild bilateral peripheral neuropathy. Pt no longer experiencing the burning pain, which is a great relief, and pt still has protective sensation along plantar surface of both feet. Pt does struggle with increased balance challenges, such as decreased base of support or uneven surfaces, and feels more comfortable looking down and watching her feet due to decreased proprioception. Vestibular testing showed no inner ear dysfunction, short of mild bilateral hypofunction , largely consistent with age- related loss. Spent time today discussing various exercises and techniques pt could perform at home to challenge balance in an attempt to improve stability and increase confidence in balance. Pt expresses understanding that her neuropathy is unlikely to change as a result, but she may improve many of her secondary symptoms, which are a result of increased sedentary lifestyle due to neuropathy. Pt largely feels that she will be motivated to perform HEP consistently, and does not feel that regular physical therapy will gave much additional benefit. Pt will be discharged following her evaluation. Physical Therapy Plan Frequency and Duration Frequency of Treatment 1x/Week Duration of Treatment One day Plan of Care Start Date 09/15/21 Plan of Care End Date 09/16/21 Discharge Physical Therapy Discharge Reasons No Longer Attending PT Discharge Comments Eval only Next Visit Focus/Plan Next Note Type Discharge Summary
--- NOTE | 2021-09-16 15:46 | PT.OPPOC ---
Physical, Occupational & Speech Therapy At [facility] Current Diagnoses Dizziness and giddiness (09/15/21) Visit Care Team Role Provider Type L Sylwia Escalante MD Family Provider Non-Staff Primary Care Provider Specialty: Family Practice Address: [address] [place], [address] Email: Ramez West MD Attending Provider Physician Referring Provider Specialty: Ear, Nose, Throat Address: [address] [place] [address], [address] Email: [email or web address] Plan Of Care PT-OP-T Assessment and Plan Start: 09/15/21 17:40 Freq: Status: Active Protocol: Document 09/15/21 12:00 DCW (Rec: 09/16/21 15:45 DCW [id number]) Physical Therapy Assessment Rehab Potential Rehabilitation Potential Good Evaluation Complexity Number of Personal Factors/Comorbidities 1-2 Number of Body Systems Impaired 3 Clinical Presentation at Evaluation Stable Impairments Impairments Balance,Sensation Assessment Summary Assessment Pt presents with signs and symptoms consistent with mild bilateral peripheral neuropathy. Pt no longer experiencing the burning pain, which is a great relief, and pt still has protective sensation along plantar surface of both feet. Pt does struggle with increased balance challenges, such as decreased base of support or uneven surfaces, and feels more comfortable looking down and watching her feet due to decreased proprioception. Vestibular testing showed no inner ear dysfunction, short of mild bilateral hypofunction , largely consistent with age- related loss. Spent time today discussing various exercises and techniques pt could perform at home to challenge balance in an attempt to improve stability and increase confidence in balance. Pt expresses understanding that her neuropathy is unlikely to change as a result, but she may improve many of her secondary symptoms, which are a result of increased sedentary lifestyle due to neuropathy. Pt largely feels that she will be motivated to perform HEP consistently, and does not feel that regular physical therapy will gave much additional benefit. Pt will be discharged following her evaluation. Physical Therapy Plan Frequency and Duration Frequency of Treatment 1x/Week Duration of Treatment One day Plan of Care Start Date 09/15/21 Plan of Care End Date 09/16/21 Discharge Physical Therapy Discharge Reasons No Longer Attending PT Discharge Comments Eval only Next Visit Focus/Plan Next Note Type Discharge Summary Plan of Care Dates Plan of Care Start Date 09/15/21 Plan of Care End Date 09/16/21 Electronically Signed by: Gregg Park, PT 09/16/21 [id number] Please Sign and Return: I have reviewed this Plan of Care and certify that the skilled therapy services above are required to meet the patient?s needs. Physician Signature Date Printed Name and Credentials Clinical Instructor Signature Printed Name and Credentials
--- NOTE | 2021-09-16 15:46 | PT.OPDS ---
Current Diagnoses Dizziness and giddiness (09/15/21) Visit Care Team Role Provider Type L Sylwia Escalante MD Family Provider Non-Staff Primary Care Provider Specialty: Family Practice Address: [address] [place], [address] Email: Ramez West MD Attending Provider Physician Referring Provider Specialty: Ear, Nose, Throat Address: [address] [place] [address], [address] Email: [email or web address] Visit Number Visit Number 1 Discharge Summary PT-OP-B Current Condition Start: 09/15/21 17:40 Freq: Status: Active Protocol: Document 09/15/21 12:00 DCW (Rec: 09/15/21 17:50 DCW [id number]) Current Condition History of Current Condition Onset Date 5 years Current Complaints Instability with uneven surfaces History of Current Condition Pt is a 60 year old female presenting with a five year history of peripheral neuropathy following chemotherapy. Pt reports she has been using supplements, which greatly helped all the burning and tingling, which used to keep her up at night, but she syill notes that her forefeet feel different, like my socks are bunched up under my toes or something, even though they aren't. Pt notes she tends to drift from side- to-side when walking down a sidewalk if she isn't watching her feet, and has difficulty with uneven ground. Pt also has some slight difficulty with fuzziness when rapidly turning her head to either side. Prior Treatments and Tests Pt notes hearing test shows ~ 10% loss in left ear PT-OP-C Subjective Start: 09/15/21 17:40 Freq: Status: Active Protocol: Document 09/15/21 12:00 DCW (Rec: 09/15/21 17:43 DCW [id number]) OP-PT Subjective Patient Comments Patient Comments I'm not exactly sure what I'm doing here, but maybe if you can show me stuff to do at home, I think that is probably what I'm most interested in. Patient Questionnaires Dizziness Handicap Inventory DHI Score 22% DHI Functional Impairment 20 to 39% Impaired (Score 20- 39) PT-OP-D Balance Start: 09/15/21 17:40 Freq: Status: Active Protocol: Document 09/15/21 12:00 DCW (Rec: 09/15/21 17:43 DCW [id number]) OP-PT Balance Assessment Sitting Balance Static Sitting Balance Ability Normal Dynamic Sitting Balance Ability Normal Standing Balance Static Standing Balance Ability Good Dynamic Standing Balance Ability Good Bob Fall Scale Copyright Permission PT-OP-H Neuro Start: 09/15/21 17:40 Freq: Status: Active Protocol: Document 09/15/21 12:00 DCW (Rec: 09/15/21 17:46 DCW [id number]) Sensation Evaluation Gross Sensation Gross Sensation WNL Location Details Right Volar Foot Light Touch Impaired Sharp/Dull Intact/Normal Deep Pressure Intact/Normal Protective Sensation Intact/Normal Proprioception (Position) Intact/Normal Kinesthesia (Movement) Intact/Normal Left Volar Foot Light Touch Impaired Sharp/Dull Intact/Normal Deep Pressure Intact/Normal Protective Sensation Intact/Normal Proprioception (Position) Intact/Normal Kinesthesia (Movement) Intact/Normal PT-OP-O Vestibular Start: 09/15/21 17:40 Freq: Status: Active Protocol: Document 09/15/21 12:00 DCW (Rec: 09/15/21 17:46 DCW [id number]) Vestibular Assessment Visual Testing Smooth Pursuits Horizontal WNL Smooth Pursuits Vertical WNL Saccades Horizontal WNL Saccades Vertical WNL Heave Test Positive Bilateral Thrust Head Positive Bilateral Comments Vestibular Comments Mildly positive Head Impulse Testing PT-OP-T Assessment and Plan Start: 09/15/21 17:40 Freq: Status: Active Protocol: Document 09/15/21 12:00 DCW (Rec: 09/16/21 15:45 DCW [id number]) Physical Therapy Assessment Rehab Potential Rehabilitation Potential Good Evaluation Complexity Number of Personal Factors/Comorbidities 1-2 Number of Body Systems Impaired 3 Clinical Presentation at Evaluation Stable Impairments Impairments Balance,Sensation Assessment Summary Assessment Pt presents with signs and symptoms consistent with mild bilateral peripheral neuropathy. Pt no longer experiencing the burning pain, which is a great relief, and pt still has protective sensation along plantar surface of both feet. Pt does struggle with increased balance challenges, such as decreased base of support or uneven surfaces, and feels more comfortable looking down and watching her feet due to decreased proprioception. Vestibular testing showed no inner ear dysfunction, short of mild bilateral hypofunction , largely consistent with age- related loss. Spent time today discussing various exercises and techniques pt could perform at home to challenge balance in an attempt to improve stability and increase confidence in balance. Pt expresses understanding that her neuropathy is unlikely to change as a result, but she may improve many of her secondary symptoms, which are a result of increased sedentary lifestyle due to neuropathy. Pt largely feels that she will be motivated to perform HEP consistently, and does not feel that regular physical therapy will gave much additional benefit. Pt will be discharged following her evaluation. Physical Therapy Plan Frequency and Duration Frequency of Treatment 1x/Week Duration of Treatment One day Plan of Care Start Date 09/15/21 Plan of Care End Date 09/16/21 Discharge Physical Therapy Discharge Reasons No Longer Attending PT Discharge Comments Eval only Next Visit Focus/Plan Next Note Type Discharge Summary
== END 2021-12-01 09:43 ==
LOC: PHYS 11:51
PROVIDERS: Family Provider Family Medicine; PCP Family Medicine; Referring Provider Otolaryngology; Visit Provider Otolaryngology
DX: R42 Dizziness and giddiness (principal)
CPT/HCPCS: 97161; 97535

== ENCOUNTER → 2021-10-20 15:27 | Outpatient (CLI) | payer OTHER, SELFPAY ==
[2019-04-04 03:46] VITALS: BMI 46.6
[2021-10-20 15:57] LABS: Add Manual Diff / Slide Review NO; Basophils Absolute Auto 0 /uL (0-100); Basophils Percent Auto 0.6 % (0-2); Eosinophils Absolute Auto 200 /uL (0-450); Eosinophils Percent Auto 2.9 % (2-4); Hematocrit 39.8 % (36-46); Hemoglobin 13.7 g/dL (12.0-16.0); Lymphocytes Absolute Auto 2300 /uL (1100-4500); Mean Corpuscular HGB Conc 34.4 % (30-36); Mean Corpuscular Hemoglobin 31.4 PG (26-34); Mean Corpuscular Volume 91.4 fL (80-100); Monocytes Absolute Auto 500 /uL (0-900); Monocytes Percent Auto 6.7 % (3-14); Neutrophils Absolute Auto 4600 /uL (1500-7000); Neutrophils Percent Auto 59.8 % (50-75); Platelet Count 191 X10^3/uL (150-400); Red Blood Cell Count 4.35 X10^6/uL (4.0-5.2); White Blood Cell Count 7.7 X10^3/uL (4.5-11.0)
[2021-10-20 16:32] LABS: Alanine Aminotransferase 21 IU/L (<35); Albumin 4.2 g/dL (3.5-5.0); Albumin Globulin Ratio 1.4 (1.0-2.8); Alkaline Phosphatase 79 U/L (38-126); Aspartate Aminotransferase 35 IU/L (14-36); BUN Creatinine Ratio 24.7 (6-22); Bilirubin Total 0.6 mg/dL (0.2-1.3); Blood Urea Nitrogen 20 mg/dL (7-17); Calcium 9.7 mg/dL (8.4-10.2); Carbon Dioxide 27 mmol/L (22-32); Chloride 104 mmol/L (98-107); Estimated Glomerular Filt Rate > 60.0 mL/min (>60); Glucose 99 mg/dL (70-100); HEMOLYSIS 18 (0-50); Potassium 3.8 mmol/L (3.4-5.1); Sodium 137 mmol/L (137-145); Total Protein 7.2 g/dL (6.3-8.2)
== END ==
PROVIDERS: Family Provider Family Medicine; PCP Family Medicine; Referring Provider Internal Medicine Hematology & Oncology; Visit Provider Internal Medicine Hematology & Oncology
DX: C50.919 Malignant neoplasm of unspecified site of unspecified female breast (principal)
CPT/HCPCS: 36415; 80053; 85025

== ENCOUNTER → 2022-07-27 09:29 | Outpatient (CLI) | payer OTHER, SELFPAY ==
[2019-04-04 03:46] VITALS: BMI 46.6
--- NOTE | 2022-07-27 09:30 | DI.NM.S_ITS ---
PROCEDURE: AR BONE SCAN WHOLE BODY RADIOPHARMACEUTICAL: A 19 mCi Tc-99m MDP IV. INDICATIONS: breast cancer TECHNIQUE: Delayed whole-body scintigrams were obtained approximately 3-4 hours after intravenous injection of radiotracer. Anterior and posterior views were acquired from vertex to feet. COMPARISON: [facility], CT, CT CHEST ABD PEL W CON, 07/27/2022, 11:17. [facility], CT, CT CHEST ABD PEL W CON, 07/28/2021, 11:07. [place], [place], [place] BONE SCAN WHOLE BODY, 06/03/2021, 14:01. FINDINGS: No abnormal uptake of radiotracer is seen within the bones of the calvarium or bones of the face. No abnormal radiotracer uptake is seen within the cervical spine, thoracic spine, or lumbar spine. No abnormal uptake of radiotracer is seen within the sternum. No abnormal rib uptake is seen. A mild degree of symmetric uptake is seen within the region of the shoulders, which is attributed to degenerative change and is not considered to be pathologic. No abnormal uptake is seen within the upper extremities. No abnormal uptake is seen within the pelvis or within the lower extremities. Relatively symmetric degenerative changes can be seen of the knees and feet. No abnormal soft tissue uptake is seen. The kidneys demonstrate normal positions. IMPRESSION: No findings of osseous metastatic disease can be seen. Dictated by: John Zaragoza M.D. on 07/27/2022 at 13:05 Approved by: John Zaragoza M.D. on 07/27/2022 at 13:07
--- NOTE | 2022-07-27 11:10 | DI.CT.S_ITS ---
PROCEDURE: CT CHEST ABD PEL W CON INDICATIONS: breast cancer TECHNIQUE: After the administration of oral and intravenous contrast, axial sections acquired from the supraclavicular neck to the pubic symphysis. Coronal and sagittal reformats were performed. For radiation dose reduction, the following was used: automated exposure control, adjustment of mA and/or kV according to patient size. COMPARISON: [facility], CT, CT CHEST ABD PEL W CON, 07/28/2021, 11:07. [facility], [place], [place] BONE SCAN WHOLE BODY, 07/27/2022, 12:07. [facility], CT, CT CHEST ABD PEL W CON, 08/07/2020, 14:38. [facility], CT, CT CHEST ABD PEL W CON, 01/08/2020, 12:28. FINDINGS: Image quality: Excellent. CHEST: Lower Neck: No enlarged lymph nodes. Thyroid: Within normal limits. Axillae: No enlarged lymph nodes. Chest Wall: Bilateral mastectomy. Lungs and Airways: Stable subcentimeter pulmonary nodules are seen. No focal infiltrates are seen. Stable scarring is seen involving the lingula. Pleura: No pneumothorax or pleural effusions. Heart: Heart size is normal. No pericardial effusion. Thoracic Vessels: The aorta and pulmonary arteries demonstrate normal size. Mediastinum and Jeane: No enlarged lymph nodes. Esophagus: No wall thickening. There is a small hiatal hernia. ABDOMEN: Liver: Unremarkable. Gallbladder: Removed. Biliary ducts: Unremarkable. Pancreas: Unremarkable. Spleen: Unremarkable. Adrenal Glands: Unremarkable. Kidneys and Ureters: Unremarkable. Stomach and Bowel: Stomach, small bowel loops, and colon are unremarkable. Peritoneum: No abnormal intraperitoneal fluid. No free air. Ventral Wall: No hernia. Abdominal Nodes: No retroperitoneal or mesenteric adenopathy by size criteria. Vessels: Aorta and inferior vena cava are normal in size. PELVIS: Pelvic Organs: The uterus appears normal for age. No adnexal masses are seen. Bladder: Unremarkable. Pelvic Nodes: No enlarged lymph nodes. Miscellaneous: No inguinal hernias are seen. Bones: Mild levoconvex scoliotic curvature is noted. Age-appropriate bony degenerative changes are seen. IMPRESSION: Bilateral mastectomy change. Stable bilateral pulmonary nodules are seen, which are not viewed with suspicion. No laz findings of metastatic disease are seen. Incidental note is made of: Small hiatal hernia Stable scarring within the lingula. Cholecystectomy Dictated by: John Zaragoza M.D. on 07/27/2022 at 14:11 Approved by: John Zaragoza M.D. on 07/27/2022 at 14:15
== END ==
PROVIDERS: Family Provider Family Medicine; PCP Family Medicine; Referring Provider Internal Medicine Hematology & Oncology; Visit Provider Internal Medicine Hematology & Oncology
DX: C50.412 Malignant neoplasm of upper-outer quadrant of left female breast (principal); C77.3 Secondary and unspecified malignant neoplasm of axilla and upper limb lymph nodes; R91.8 Other nonspecific abnormal finding of lung field; K44.9 Diaphragmatic hernia without obstruction or gangrene; Z17.0 Estrogen receptor positive status [ER+]; Z90.13 Acquired absence of bilateral breasts and nipples
CPT/HCPCS: 71260; 74177; 78306; A9503

== ENCOUNTER → 2022-12-01 08:12 | Outpatient (CLI) | payer OTHER, SELFPAY ==
[2019-04-04 03:46] VITALS: BMI 46.6
--- NOTE | 2022-12-01 08:14 | DI.NM.S_ITS ---
PROCEDURE: [place] BONE SCAN WHOLE BODY RADIOPHARMACEUTICAL: 21.1 mCi Tc-99m MDP IV. INDICATIONS: Breast cancer TECHNIQUE: Delayed whole-body scintigrams were obtained approximately 3-4 hours after intravenous injection of radiotracer. Anterior and posterior views were acquired from vertex to feet. COMPARISON: [place], [place] BONE SCAN WHOLE BODY, 06/03/2021, 14:01. [place] BONE SCAN WHOLE BODY, 04/15/2020, 13:35. [place], [place], BONE SCAN WHOLE BODY, 07/16/2015, 15:03. [facility], CT, CT CHEST ABD PEL W CON, 12/01/2022, 9:36. [place] BONE SCAN WHOLE BODY, 07/27/2022, 12:07. FINDINGS: No abnormal uptake of radiotracer is seen within the bones of the calvarium or bones of the face. No abnormal radiotracer uptake is seen within the cervical spine, thoracic spine, or lumbar spine. Scattered mild areas of radiotracer uptake are seen, which are most in keeping with age-appropriate degenerative change. No abnormal uptake of radiotracer is seen within the sternum. No abnormal rib uptake is seen. A mild degree of symmetric uptake is seen within the region of the shoulders, which is attributed to degenerative change and is not considered to be pathologic. No abnormal uptake is seen within the upper extremities. No abnormal uptake is seen within the pelvis or within the lower extremities. Symmetric degenerative change can be seen of the knees and ankles. No abnormal soft tissue uptake is seen. The kidneys demonstrate normal positions. IMPRESSION: Findings of metastatic disease are not detected. Dictated by: John Zaragoza M.D. on 12/01/2022 at 13:10 Approved by: John Zaragoza M.D. on 12/01/2022 at 13:12
--- NOTE | 2022-12-01 09:30 | DI.CT.S_ITS ---
PROCEDURE: CT CHEST ABD PEL W CON INDICATIONS: Breast cancer TECHNIQUE: After the administration of oral and intravenous contrast, axial sections acquired from the supraclavicular neck to the pubic symphysis. Coronal and sagittal reformats were performed. For radiation dose reduction, the following was used: automated exposure control, adjustment of mA and/or kV according to patient size. COMPARISON: [facility], CT, CT CHEST ABD PEL W CON, 07/27/2022, 11:17. [facility], CT, CT CHEST ABD PEL W CON, 01/08/2020, 12:28. [facility], CT, CT CHEST ABD PEL W CON, 06/07/2018, 13:59. [facility], CT, CT CHEST ABD PEL W CON, 01/31/2019, 14:38. [facility], CT, CT CHEST ABD PEL W CON, 08/07/2020, 14:38. [facility], CT, CT CHEST ABD PEL W CON, 07/28/2021, 11:07. [place], [place], [place] BONE SCAN WHOLE BODY, 12/01/2022, 11:32. FINDINGS: Image quality: Excellent. CHEST: Lower Neck: No enlarged lymph nodes. Thyroid: Asymmetric, smaller on the left Axillae: No enlarged lymph nodes. Bilateral axillary clips are seen. Chest Wall: Bilateral mastectomy change can be seen. Lungs and Airways: Pulmonary nodules are seen: Right lower lobe laterally, series 3, image 223, 5 mm, stable Right lower lobe inferiorly and laterally, series 3 image 249, 3 mm and 2 mm, stable Left lower lobe anteriorly, series 3, image 224, 4 mm, stable Left lateral costophrenic angle series 3, image 283, 3 mm, stable No new pulmonary nodules are detected. No focal infiltrates are seen. Scarring change is seen involving the lingula, stable Pleura: No pneumothorax or pleural effusions. Heart: Heart size is normal. No pericardial effusion. Thoracic Vessels: The aorta and pulmonary arteries demonstrate normal size. Mediastinum and Jeane: No enlarged lymph nodes. Esophagus: No wall thickening. There is a small hiatal hernia. ABDOMEN: Liver: Unremarkable. Gallbladder: Removed. Biliary ducts: Unremarkable. Pancreas: Unremarkable. Spleen: Unremarkable. Adrenal Glands: Unremarkable. Kidneys and Ureters: Unremarkable. Stomach and Bowel: Stomach, small bowel loops, and colon are unremarkable. A normal appendix is incidentally noted. Peritoneum: No abnormal intraperitoneal fluid. No free air. Ventral Wall: No hernia. Abdominal Nodes: No retroperitoneal or mesenteric adenopathy by size criteria. Vessels: Aorta and inferior vena cava are normal in size. PELVIS: Pelvic Organs: The uterus appears normal for age. No adnexal masses are seen. Bladder: Unremarkable. Pelvic Nodes: No enlarged lymph nodes. Miscellaneous: No inguinal hernias are seen. Bones: Age-appropriate bony degenerative changes are seen. IMPRESSION: Bilateral mastectomy change, without findings of local recurrence. No enlarged axillary lymph nodes are seen. Stable subcentimeter bilateral pulmonary nodules are seen. Additional findings: Stable scarring change of the lingula Small hiatal hernia Cholecystectomy Normal appendix Dictated by: John Zaragoza M.D. on 12/01/2022 at 12:11 Approved by: John Zaragoza M.D. on 12/01/2022 at 12:17
== END ==
PROVIDERS: Family Provider Family Medicine; PCP Family Medicine; Referring Provider Internal Medicine Hematology & Oncology; Visit Provider Internal Medicine Hematology & Oncology
DX: C50.912 Malignant neoplasm of unspecified site of left female breast (principal); R91.8 Other nonspecific abnormal finding of lung field; K44.9 Diaphragmatic hernia without obstruction or gangrene; Z90.49 Acquired absence of other specified parts of digestive tract; Z90.13 Acquired absence of bilateral breasts and nipples
CPT/HCPCS: 71260; 74177; 78306; A9503

== ENCOUNTER → 2023-02-21 09:56 | Outpatient (CLI) | payer OTHER, SELFPAY ==
[2019-04-04 03:46] VITALS: BMI 46.6
--- NOTE | 2023-02-21 10:13 | DI.DEXA.S_ITS ---
Bone Density Report Name: STEPHANIE PUENTES Age: 62 Sex: Female Ethnicity: White Date of : 1960 Indication: postmenopausal; screening for osteoporosis; Referring Provider: LYNDON PALMA Study: Bone densitometry was performed. Exam Date: February 21, 2023 Accession number: [id number] Bone Density: Region BMD T-score Z-score Classification AP Spine(L1-L4) 1.287 2.2 3.7 Normal Femoral Neck (Left) 1.026 1.6 2.9 Normal Total Hip (Left) 1.193 2.1 3.1 Normal Femoral Neck (Right) 1.051 1.8 3.2 Normal Total Hip (Right) 1.198 2.1 3.1 Normal Total Hip Mean 1.196 2.1 3.1 Normal Total Forearm (Left) 0.579 0.0 1.3 Normal 1/3 Forearm (Left) 0.662 -0.5 0.8 Normal UD Forearm (Left) 0.486 0.7 1.7 Normal World Health Organization criteria for BMD impression classify patients as: Normal (T-score at or above -1.0), Osteopenia (T-score between -1.0 and -2.5), or Osteoporosis (T-score at or below -2.5). 10-year Fracture Risk: FRAX not reported because: All T-scores for Spine Total, Hip Total, Femoral Neck at or above -1.0 Previous Exams: -- Region Exam Age BMD T-score BMD Change BMD Change Date g/cm2 vs Baseline vs Previous -- AP Spine (L1-L4) 02/21/2023 62 1.287 2.2 -0.082 (-6.0%)# -0.082 (-6.0%)# 01/29/2021 60 1.369 2.9 Total Hip(Left) 02/21/2023 62 1.193 2.1 -0.033 (-2.7%)# -0.033 (-2.7%)# 01/29/2021 60 1.226 2.3 Total Hip(Right) 02/21/2023 62 1.198 2.1 -0.028 (-2.3%)# -0.028 (-2.3%)# 01/29/2021 60 1.227 2.3 -- *Denotes significance at 95% confidence level, LSC for AP Spine = 0.022 g/cm2, LSC for Total Hip = 0.027 g/cm2 # Denotes dissimilar scan types or analysis methods Impression: The patient has normal bone mass. No significant bone loss was observed. Discussion: LOW RISK OF FRACTURE; BONE DENSITY IS WELL ABOVE THE MINIMUM DESIRABLE LEVEL AND ABOVE AVERAGE FOR AGE AND SEX AT ALL SKELETAL SITES TESTED. This person's bone density is above expected limits for age and sex. This is rarely clinically significant, but should be pursued if there are significant musculoskeletal complaints. The patient should follow a healthful lifestyle (good nutrition with adequate calcium and vitamin D, and appropriate weight-bearing exercise). Follow-Up: Consider repeating this study in 5 years or sooner if there is some new clinical indication. Reported by: CELESTE INIGUEZ MD on 02/21/2023 10:24:00 AM.
== END ==
PROVIDERS: Family Provider Family Medicine; PCP Family Medicine; Referring Provider Internal Medicine Hematology & Oncology; Visit Provider Internal Medicine Hematology & Oncology
DX: C50.912 Malignant neoplasm of unspecified site of left female breast (principal); Z13.820 Encounter for screening for osteoporosis; Z78.0 Asymptomatic menopausal state
CPT/HCPCS: 77080; 77081

== ENCOUNTER → 2023-07-13 08:50 | Outpatient (CLI) | payer OTHER, SELFPAY ==
[2019-04-04 03:46] VITALS: BMI 46.6
--- NOTE | 2023-07-13 | DI.MRI.S_ITS ---
PROCEDURE: MR PELVIS WO/W CON INDICATIONS: CHRONIC PAIN IN PELVIS/BREAST CANCER TECHNIQUE: Coronal HASTE, sagittal breath-hold T2 FSE; axial T1 FSE with and without fat saturation through the pelvis. Optional long- and short-axis uterine nonbreath-hold T2 FSE through the uterus. Sagittal or axial dynamic VIBE during administration of contrast. Post-contrast axial or coronal VIBE/2-D FLASH with fat saturation from the iliac crests to the symphysis. Optional diffusion weighted imaging and ADC may be performed. COMPARISON: [facility], CT, CT CHEST ABD PEL W CON, 12/01/2022. , 9:36[facility], US, US PELVIC COMPLETE WITH TRANSVAGINAL, 11/04/2022, 9:22. FINDINGS: Image quality: Good Lower abdomen: No evidence of small bowel obstruction. No pathologic ascites or intraperitoneal abscess in the lower abdomen. Bladder: Unremarkable Reproductive organs: The uterus is small. No junctional zone or endometrial thickening. There is probably a small fibroid near the fundus, intramural, measuring about 6 mm. There may be tiny nabothian cysts. No suspicious enhancement. Atrophic appearing ovaries bilaterally. Rectum: Unremarkable. Vessels and lymph nodes: No pathologic lymphadenopathy by size criteria. No aneurysmal vessel id postsurgical changes. entified. Pelvic wall: Unremarkable. Anterior lower abdominal postsurgical changes per Bones: Mild scattered degenerative changes. No suspicious enhancement identified IMPRESSION: No acute pelvic abnormality. Reproductive organs appear unremarkable for age. Aside from overall mild degenerative lumbosacral and hip changes, no imaging explanation identified for pain. Clinical followup is recommended. If there is new or worsening clinical concern, reimaging could be obtained. If there is a focal region, please further specify on future imaging. Recommend also oncologic follow-up imaging given history of malignancy. Dictated by: Vadim Iverson M.D. on 07/13/2023 at 11:22 Approved by: Vadim Iverson M.D. on 07/13/2023 at 11:31
== END ==
PROVIDERS: Family Provider Family Medicine; PCP Family Medicine; Referring Provider Internal Medicine Hematology & Oncology; Visit Provider Internal Medicine Hematology & Oncology
DX: C50.812 Malignant neoplasm of overlapping sites of left female breast (principal); R10.2 Pelvic and perineal pain; G89.29 Other chronic pain; M47.817 Spondylosis without myelopathy or radiculopathy, lumbosacral region; Z17.0 Estrogen receptor positive status [ER+]
CPT/HCPCS: 72197; A9579

== ENCOUNTER → 2023-07-14 08:54 | Outpatient (CLI) | payer OTHER, SELFPAY ==
[2019-04-04 03:46] VITALS: BMI 46.6
--- NOTE | 2023-07-14 | DI.MRI.S_ITS ---
PROCEDURE: MR ABDOMEN WO/W CON INDICATIONS: CHRONIC PAIN IN PELVIS/HX BREAST CANCER TECHNIQUE: Coronal HASTE, axial 2D FLASH in- and [id number]; axial breath-hold T2 FSE. Dynamic axial VIBE during the administration of contrast; post-contrast coronal VIBE or 2D FLASH with fat saturation from the hepatic dome to the iliac crests. Optional diffusion weighted imaging and ADC may be performed. COMPARISON: [facility], CT, CT CHEST ABD PEL W CON, 12/01/2022, 9:36. [facility], MR, MR PELVIS WO/W CON, 07/13/2023, 9:33. FINDINGS: Lung bases: No basal pleural effusions. Solid organs: Liver is unremarkable in size and enhancement. Gallbladder is surgically absent. Biliary system is non dilated. Pancreas is normal in morphology. Spleen is normal in size and enhancement. No adrenal nodules. No hydronephrosis. Nodes and vessels: No retroperitoneal or mesenteric adenopathy by size criteria. Aorta and inferior vena cava are normal in size. Bowel and peritoneum: Unenhanced bowel loops are normal in caliber. No free fluid. IMPRESSION: No acute abnormality identified in the abdomen by MR. Dictated by: Keyur York M.D. on 07/14/2023 at 16:37 Approved by: Keyur York M.D. on 07/14/2023 at 16:55
== END ==
PROVIDERS: Family Provider Family Medicine; PCP Family Medicine; Referring Provider Internal Medicine Hematology & Oncology; Visit Provider Internal Medicine Hematology & Oncology
DX: C50.812 Malignant neoplasm of overlapping sites of left female breast (principal); R10.2 Pelvic and perineal pain; G89.29 Other chronic pain; Z17.0 Estrogen receptor positive status [ER+]; Z90.49 Acquired absence of other specified parts of digestive tract
CPT/HCPCS: 74183; A9579

== ENCOUNTER → 2023-08-29 08:20 | Outpatient (CLI) | payer OTHER, SELFPAY ==
[2019-04-04 03:46] VITALS: BMI 46.6
--- NOTE | 2023-08-29 08:21 | DI.MRI.S_ITS ---
PROCEDURE: MR ANGIO HEAD WO CON INDICATIONS: Pulsatile tinnitus, left ear TECHNIQUE: Noncontrast axial 3-D [id number] MR angiogram, with 3-dimensional maximum intensity projection (MIP) reformats of the internal carotid arteries and posterior circulation then performed. COMPARISON: [facility], MR, MR STROKE, 04/04/2019, 9:48. FINDINGS: Image quality: Excellent. Anterior circulation: Intracranial internal carotid arteries demonstrate normal size and intraluminal flow signal. The flow within the paired anterior cerebral arteries is normal and symmetric. The flow within the middle cerebral arteries is normal and symmetric. The anterior communicating artery is seen. No stenoses, occlusions, or aneurysms. Posterior circulation: Right vertebral artery dominance. Visualized portions of the vertebral arteries demonstrate normal caliber. There is slight appearance of fenestration of the proximal vertebral artery which has been unchanged since prior exam. The flow within the posterior cerebral arteries is normal and symmetric. No stenoses, occlusions, or aneurysms. 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 It is recommended annual follow-up as this has a potential to proceed to development of aneurysm. Dictated by: Akilah Quiñones M.D. on 08/29/2023 at 12:24 Approved by: Akilah Quiñones M.D. on 08/29/2023 at 12:33
--- NOTE | 2023-08-29 08:43 | DI.MRI.S_ITS ---
PROCEDURE: MR ANGIO NECK W CON INDICATIONS: Pulsatile tinnitus, left ear TECHNIQUE: Axial and sagittal TruFISP through the neck. Coronal dynamic MRA after the administration of contrast in the arterial and venous phases, with rotating 3-dimensional maximum intensity projection (MIP) reformats constructed from subtraction images. COMPARISON: [facility], MR, MR STROKE, 04/04/2019, 9:48. MR, BRAIN W&WO CONTRAST, 07/08/2015, 11:46. FINDINGS: Image quality: Excellent. Carotid system: Great vessels demonstrate a conventional anatomy as they arise from the aortic arch. The origins of the common carotid arteries appear normal. The calibers and courses of the common carotid arteries are likewise normal. The carotid bifurcations appear normal bilaterally. The internal carotid arteries are widely patent up to the [place] of [place]. Posterior circulation: Right vertebral artery dominance. There is a diminutive appearance of the V4 segment of the left vertebral artery. However, more proximal portions extending to the origin of the left vertebral artery are not well visualized. This is new compared to prior exam in 2019. Right vertebral artery demonstrates no hemodynamically significant stenosis at the origin or throughout its proximal portions. The more superior portions of the vertebral arteries demonstrate normal course and caliber. There is appearance of mild fenestration at the proximal portion of the vertebral artery unchanged compared to prior exam. Miscellaneous: Subclavian arteries are patent throughout. Pre-contrast images through the neck demonstrate no soft tissue abnormalities. IMPRESSION: New findings demonstrating poor visualization of significant portions of the left vertebral artery suggestive of occlusion with retrograde flow at the V4 segment. However, very slow flow cannot be definitively excluded. Chronicity is indeterminate although new since 2019. As clinically indicated, CTA neck may be obtained for further evaluation of occlusion versus slow flow. Any quantitative measurements of stenosis were performed using NASCET criteria. Dictated by: Akilah Quiñones M.D. on 08/29/2023 at 12:33 Approved by: Akilah Quiñones M.D. on 08/29/2023 at 13:00
== END ==
PROVIDERS: Family Provider Family Medicine; PCP Family Medicine; Referring Provider Otolaryngology; Visit Provider Otolaryngology
DX: H93.A2 Pulsatile tinnitus, left ear (principal)
CPT/HCPCS: 70544; 70548

== ENCOUNTER 2023-09-09 20:01 | Emergency (ER) | payer OTHER, SELFPAY ==
[2019-04-04 03:46] VITALS: BMI 46.6
[2023-09-09] VITALS (13 sets, daily range): BP systolic 169–188; BP diastolic 74–116; PULSE 69–128; RESP 14–23; TEMP 36.7; O2SAT 96–99; BMI 43.9
--- NOTE | 2023-09-09 20:16 | DI.RAD.S_ITS ---
PROCEDURE: XR CHEST 1V INDICATIONS: chest pain TECHNIQUE: One view of the chest was acquired. COMPARISON: [facility], CR, XR CHEST 1V, 04/03/2019, 22:35. FINDINGS: Surgical changes and devices: Surgical clips are seen in bilateral axilla. Lungs and pleura: Lungs are clear. No pleural effusions or pneumothorax. Mediastinum: Mediastinal contours appear normal. Heart size is normal. Bones and chest wall: No suspicious bony lesions. Overlying soft tissues appear unremarkable. IMPRESSION: No acute cardiopulmonary pathology. Dictated by: Rodney Lackey M.D. on 09/09/2023 at 21:14 Approved by: Rodney Lackey M.D. on 09/09/2023 at 21:15
--- NOTE | 2023-09-09 20:25 | PC.NURSE ---
Patient presents to ED for not feeling well. Patient states while working around 1700 she began feeling unwell, nauseaous, and head fullness. Patient states having ear pressure and tinnitus since March, recent MRA done through ENT. Patient's HR 120-130's upon arrival to ED. Patient denies chest pain, recent illness, or dizzy/lightheadedness.
[2023-09-09 20:36] LABS: Add Manual Diff / Slide Review NO; Basophils Absolute Auto 0 /uL (0-100); Basophils Percent Auto 0.4 % (0-2); Eosinophils Absolute Auto 200 /uL (0-450); Eosinophils Percent Auto 1.7 % (2-4); Hematocrit 39.5 % (36-46); Hemoglobin 13.5 g/dL (12.0-16.0); Lymphocytes Absolute Auto 2400 /uL (1100-4500); Lymphocytes Percent Auto 24.1 % (25-40); Mean Corpuscular HGB Conc 34.2 % (30-36); Mean Corpuscular Volume 93.4 fL (80-100); Monocytes Absolute Auto 600 /uL (0-900); Monocytes Percent Auto 6.4 % (3-14); Neutrophils Absolute Auto 6600 /uL (1500-7000); Neutrophils Percent Auto 67.4 % (50-75); Platelet Count 221 X10^3/uL (150-400); Red Blood Cell Count 4.22 X10^6/uL (4.0-5.2); Red Cell Distribution Width 12.4 % (11.6-14.8); White Blood Cell Count 9.8 X10^3/uL (4.5-11.0)
[2023-09-09 20:41] LABS: INR 0.9 (0.9-1.3); Prothrombin Time 10.8 SECONDS (10.1-12.7)
[2023-09-09 20:43] LABS: PTT Partial Thromboplastin Tim 33 SECONDS (26-36)
[2023-09-09 20:46] LABS: Alanine Aminotransferase 19 IU/L (<35); Albumin 4.6 g/dL (3.5-5.0); Albumin Globulin Ratio 1.3 (1.0-2.8); Alkaline Phosphatase 78 U/L (38-126); Aspartate Aminotransferase 33 IU/L (14-36); BUN Creatinine Ratio 26.8 (6-22); Bilirubin Total 0.6 mg/dL (0.2-1.3); Blood Urea Nitrogen 26 mg/dL (7-17); Calcium 10.3 mg/dL (8.4-10.2); Carbon Dioxide 27 mmol/L (22-32); Chloride 100 mmol/L (98-107); Creatine Kinase 84 U/L (30-135); Estimated Glomerular Filt Rate > 60 mL/min (>60); Globulin 3.5 g/dL (1.7-4.1); Glucose 109 mg/dL (80-110); HEMOLYSIS < 15 (0-50); Lipase 170 U/L (23-300); Magnesium 2.2 mg/dL (1.6-2.3); Potassium 3.4 mmol/L (3.4-5.1); Sodium 137 mmol/L (137-145); Total Protein 8.1 g/dL (6.3-8.2)
[2023-09-09 20:57] LABS: NT-proBNP (BNP-Adult 18+) 219 pg/mL (<125); Troponin I < 0.012 ng/mL (0.01-0.034)
--- NOTE | 2023-09-09 22:49 | ED_ITS ---
HPI - Arrhythmia/Palpitations General Chief Complaint: Arrhythmia/Palpitations Stated Complaint: HBP, headache, heart is racing Time Seen by Provider: 09/09/23 22:49 Source: patient Mode of arrival: Ambulatory History of Present Illness HPI narrative: 62-year-old woman with history of breast cancer and subsequent lymphedema after mastectomy. Hypertension, hypothyroidism who presents feeling lightheaded, shaky and nauseated starting around 5:00 p.m. work today. She noted that her blood pressure was in the 200 over the 110 range. She took her regular dose of losartan and metoprolol and then took an additional dose of 50 mg of metoprolol. She is not having chest pain shortness of breath, cough, chills. She does complain of pressure headache. She notes that she is been having left-sided pressure and pressure headaches since March of this year she has seen ENT physician and an MRA of the head and neck has been done as of August 29. There is a question of poor visualization of the left vertebral arteries suggestive of occlusion with retrograde flow. MRI of brain vasculature is unremarkable with no stenosis appreciated. Related Data Home Medications Medication Instructions Recorded Confirmed [COQ10] 100 mg PO Q DAY ##0 05/28/16 03/14/23 lorazepam 0.5 mg tablet (Ativan) 0.5 mg PO QDAY PRN Anxiety ##0 12/03/16 03/14/23 omega-3 fatty acids 500 mg-dha 270 1 cap PO QDAY ##0 02/25/17 03/14/23 mg-epa 135 mg capsule (Ovega-3) [APEX WATER] 1 cap PO Q DAY ##0 03/24/17 03/14/23 chlorthalidone 25 mg tablet 25 mg PO DAILY 04/21/18 03/14/23 losartan 100 mg tablet 100 mg PO DAILY 04/21/18 03/14/23 cholecalciferol (vitamin D3) 50 4,000 unit PO DAILY 12/01/18 03/14/23 mcg (2,000 unit) capsule (Vitamin D3) metoprolol succinate 100 mg 50 mg PO DAILY 04/04/19 03/14/23 tablet,extended release 24 hr Beta Plus 100 mg DAILY 07/12/19 03/14/23 Hydrozyme 3 tab DAILY 07/12/19 03/14/23 Probiotic Acidophilus 200 mg DAILY 07/12/19 03/14/23 alpha lipoic acid 600 mg capsule 600 mg PO DAILY 07/12/19 03/14/23 apple cider vinegar 600 mg capsule 600 mg PO DAILY 07/12/19 03/14/23 potassium chloride 10 mEq 30 meq PO DAILY 05/11/21 03/14/23 tablet,extended release Previous Rx's Medication Instructions Recorded letrozole 2.5 mg tablet (Femara) 2.5 mg PO QDAY #90 tabs 12/28/22 Allergies Allergy/AdvReac Type Severity Reaction Status Date / Time latex [LATEX] Allergy Intermediate RASH Verified 09/09/23 20:14 amlodipine Allergy Verified 09/09/23 20:14 TAGADERM Allergy Intermediate RASH Uncoded 12/01/18 11:57 Review of Systems Review of Systems Narrative: Pertinent positive and negative findings as per HPI Patient History Medical History (Updated 09/10/23 @ 02:11 by Debbie Yuen MD) Elevated TSH Cancer of left female breast Hypertension Surgical History Status post tubal ligation Status post cholecystectomy Status post breast biopsy History of tonsillectomy Family History Father Age: 91 Arthritis Prostate cancer Essential hypertension Grandmother Cancer Mother Age: 87 Arthritis Damascus cell cancer Diabetes mellitus Heart disease Essential hypertension Grandmother Essential hypertension Cerebrovascular accident (CVA), unspecified mechanism Sister Age: 66 Arthritis Overweight Diabetes mellitus Essential hypertension Social History household members: none Smoking Status: Former smoker alcohol intake: former Smoking Status: Former smoker alcohol intake frequency: 0-2 drinks per day Substance Use Type: marijuana Exam Initial Vital Signs Initial Vital Signs: Vital Signs Temperature 98.0 F 09/09/23 20:14 Pulse Rate 128 H 09/09/23 20:14 Respiratory Rate 20 09/09/23 20:14 Blood Pressure 186/116 H 09/09/23 20:14 Pulse Oximetry 99 09/09/23 20:14 Oxygen Delivery Method Room Air 09/09/23 20:14 General: Healthy appearing, in no acute distress. Able to give a complete and coherent history. Well-nourished well-developed HEENT: Moist mucous membranes, normal sclera with reactive pupils, Neck: No JVD, supple Respiratory: Lungs are clear to auscultation, no wheezing no rales no rhonchi. Full and symmetrical air movement Cardiac: Regular rate and rhythm, 3/6 systolic murmur Abdomen: Soft, nontender, good bowel tones, no flank pain Skin: Warm and dry, no rashes Neurologic: Grossly neurologically intact with no obvious asymmetries or abnormalities Extremities: No trauma, lymphedema sleeve the left upper extremity. No increased to baseline lower extremity edema Psych: Cooperative, appropriate insight and affect Course Orders Ordered: ED Orders 09/09/23 20:16 XR chest 1V Stat EKG-12 Lead Stat 09/09/23 20:20 Complete Blood Count AUTO DIFF Stat Comprehensive Metabolic Panel Stat D Dimer Stat Lactate (Lactic Acid) Stat Lipase Stat Magnesium Stat NT-proBNP (BNP-Adult 18+) Stat PTT Partial Thromboplastin Alex Stat Prothrombin Time INR Stat Troponin & CK Cardiac Panel Stat 09/09/23 23:55 Trop I [Troponin I] Stat Discontinued Medications Aspirin (Aspirin 81 Mg Chew Tab) 324 mg PO NOW ONE Stop: 09/09/23 20:17 Last Admin: 09/09/23 21:05 Dose: Not Given Documented By: HCELSEY Ketorolac Tromethamine (Ketorolac 30 Mg/Ml Vial) 15 mg IV NOW ONE Stop: 09/10/23 01:54 Vital Signs Vital signs: Vital Signs - 8 hr 09/09/23 20:14 09/09/23 20:31 09/09/23 21:00 Temperature 98.0 F Pulse Rate 128 H 80 78 Respiratory Rate 20 22 Blood Pressure 186/116 H 177/84 H Pulse Oximetry 99 99 98 Oxygen Delivery Method Room Air 09/09/23 21:01 09/09/23 21:23 09/09/23 21:23 Temperature Pulse Rate 79 78 Respiratory Rate 18 16 Blood Pressure 177/77 H Pulse Oximetry 99 98 Oxygen Delivery Method 09/09/23 21:30 09/09/23 21:30 09/09/23 22:00 Temperature Pulse Rate 78 73 Respiratory Rate 18 16 Blood Pressure 172/74 H Pulse Oximetry 99 98 Oxygen Delivery Method 09/09/23 22:00 09/09/23 22:22 09/09/23 22:30 Temperature Pulse Rate 78 73 Respiratory Rate 15 23 Blood Pressure 169/75 H Pulse Oximetry 99 98 Oxygen Delivery Method 09/09/23 23:00 09/09/23 23:01 09/09/23 23:01 Temperature Pulse Rate 75 75 Respiratory Rate 20 16 Blood Pressure 180/85 H Pulse Oximetry 96 98 Oxygen Delivery Method 09/09/23 23:30 09/09/23 23:59 09/09/23 23:59 Temperature Pulse Rate 73 69 Respiratory Rate 14 16 Blood Pressure 188/81 H Pulse Oximetry 99 99 Oxygen Delivery Method 09/10/23 00:00 09/10/23 00:00 09/10/23 00:30 Temperature Pulse Rate 72 71 Respiratory Rate 12 18 Blood Pressure 189/85 H Pulse Oximetry 98 96 Oxygen Delivery Method 09/10/23 00:31 09/10/23 00:31 09/10/23 01:00 Temperature Pulse Rate 70 65 Respiratory Rate 22 15 Blood Pressure 169/74 H Pulse Oximetry 96 97 Oxygen Delivery Method 09/10/23 01:00 09/10/23 01:30 09/10/23 01:30 Temperature Pulse Rate 69 Respiratory Rate 16 Blood Pressure 153/69 H 156/72 H Pulse Oximetry 94 Oxygen Delivery Method MDM - Arrhythmia/Palpitations Lab Data 09/09/23 20:20 09/09/23 20:20 Labs: Lab Results 09/09/23 09/09/23 Range/Units 20:20 23:55 WBC 9.8 (4.5-11.0) X10^3/uL RBC 4.22 (4.0-5.2) X10^6/uL Hgb 13.5 (12.0-16.0) g/dL Hct 39.5 (36-46) % MCV 93.4 (80-100) fL MCH 32.0 (26-34) PG MCHC 34.2 (30-36) % RDW 12.4 (11.6-14.8) % Plt Count 221 (150-400) X10^3/uL Neut % (Auto) 67.4 (50-75) % Lymph % (Auto) 24.1 L (25-40) % [place] % (Auto) 6.4 (3-14) % Eos % (Auto) 1.7 L (2-4) % Baso % (Auto) 0.4 (0-2) % Neut # (Auto) 6600 (8080-1129) /uL Lymph # (Auto) 2400 (3705-9029) /uL [place] # (Auto) 600 (0-900) /uL Eos # (Auto) 200 (0-450) /uL Baso # (Auto) 0 (0-100) /uL PT 10.8 (10.1-12.7) SECONDS INR 0.9 (0.9-1.3) APTT 33 (26-36) SECONDS D-Dimer 247 (<500) ng/ml Sodium 137 (137-145) mmol/L Potassium 3.4 (3.4-5.1) mmol/L Chloride 100 (98-107) mmol/L Carbon Dioxide 27 (22-32) mmol/L BUN 26 H (7-17) mg/dL Creatinine 0.97 (0.52-1.04) mg/dL Estimated GFR > 60 (>60) mL/min BUN/Creatinine Ratio 26.8 H (6-22) Glucose 109 (80-110) mg/dL Lactate 1.0 (0.7-2.1) mmol/L Calcium 10.3 H (8.4-10.2) mg/dL Magnesium 2.2 (1.6-2.3) mg/dL Total Bilirubin 0.6 (0.2-1.3) mg/dL AST 33 (14-36) IU/L ALT 19 (<35) IU/L Alkaline Phosphatase 78 (38-126) U/L Total Creatine Kinase 84 (30-135) U/L Troponin I < 0.012 < 0.012 (0.01-0.034) ng/mL NT-Pro-B Natriuret Pep 219 H (<125) pg/mL Total Protein 8.1 (6.3-8.2) g/dL Albumin 4.6 (3.5-5.0) g/dL Globulin 3.5 (1.7-4.1) g/dL Albumin/Globulin Ratio 1.3 (1.0-2.8) Lipase 170 (23-300) U/L MDM Narrative Medical decision making narrative: CC: Complicating co-morbidities: Data collected from: patient, Social determinants of health that may influence the patients condition: Medical records reviewed: Hospital discharge from March of 2019, multiple oncology notes regarding her breast cancer Echocardiogram done at [facility] on August 10 shows normal left ventricular thickness size wall motion and systolic function with an ejection fraction at 55-60%. No significant valvular abnormalities. No significant changes compared to July 27, 2021 Differential considered: Acute coronary syndrome, pulmonary embolism, anxiety, onset viral syndrome, Exam documented above, pertinent findings include: She has a lymphedema sleeve on the left upper extremity. Surgically absent breast, 3/6 heart murmur no significant lower extremity edema remainder of exam is benign Lab Test results independently reviewed as above. Pertinent findings: CBC is unremarkable no anemia or leukocytosis Chemistries are reassuring calcium is minimally elevated at 10.3 (upper limit is 10.2) Minimally elevated BNP at 2:19 a.m. Lipase is appropriate 170 Initial troponin and repeat 2 hours later are both undetectable D-dimer is within normal limits suggesting that pulmonary embolism is not a cause of her acute symptoms this evening Independently reviewed EKG sinus tachycardia at a rate of 124, nonspecific STT wave changes. Normal axis. Imaging studies independently reviewed: Chest x-ray shows no acute cardiopulmonary findings Neck MRA done 08/29 due to the persistent left-sided ear and neck fullness shows poor visualization of significant portions of the left vertebral artery suggestive of occlusion with retrograde flow at the V4 segment. Slow flow can not be excluded and as clinically indicated radiologist indicates that a CTA of the neck may be helpful in determining occlusion versus slow flow. 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 Treatments: Aspirin, IV Toradol Re-evaluations: Over the course of her ER evaluation her blood pressure and heart rate have both come down likely as a consequence of appropriately taken losartan and the extra dose of metoprolol taken as well. Still continues to have the fullness in the left side of her head your and neck which, again has been a problem for well over 4 months. 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 She still has a follow-up with ENT to review this. Discussion: 62-year-old woman with history of breast cancer, bilateral mastectomy side effects from all of the chemotherapy medications as well as continued letrozole. Acute issue tonight does not have a definitive diagnosis based on today's workup. I am not finding evidence of acute coronary syndrome, stroke, infection, hypertensive crisis. She appropriately took her usual medications and an additional dose of metoprolol and all of the seem to be helping. She does have follow-up scheduled with Cardiology as well as ENT. 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 At this point I am not finding any life- threatening abnormalities that would require additional imaging studies or hospitalization. All questions are answered and she is safe for discharge Discharge Plan Departure Patient Disposition: Home Clinical Impression: Sinus tachycardia, Sensation of fullness in left ear Hypertension Qualifiers: Hypertension type: primary hypertension Qualified Code(s): I10 - Essential (primary) hypertension Activity Restrictions/Additional Instructions: Thank you for coming in today Your episode with the elevated blood pressure and heart rate does sound frightening. Fortunately you did exactly the right thing by taking your blood pressure medication and an extra dose of metoprolol. I believe that is why your blood pressure and heart rate are both getting much closer to normal at time of discharge from the emergency department. Your workup in the emergency department did not show any life-threatening abnormalities. There is no evidence of an acute heart attack, acute stroke, hypertensive crisis, pulmonary embolism or other findings that would require additional workup, further imaging or hospitalization. I would recommend that you begin a baby aspirin daily and consider starting the low-dose of Crestor that doctor Jim has prescribed. You do need to keep your follow-up appointments with the ENT doctor as well as the sole polisher. If you find that you are getting worse or develop any new symptoms, please feel free to return to the emergency department for further evaluation. Prescriptions: No Action [COQ10] 100 mg PO Q DAY Qty: 0 lorazepam [Ativan] 0.5 MG tablet 0.5 mg PO QDAY MDD a PRN (Reason: Anxiety) Qty: 0 Ovega-3 500-270-135 mg Capsule 1 cap PO QDAY Qty: 0 [APEX WATER] 1 cap PO Q DAY Qty: 0 metoprolol succinate 100 mg tablet extended release 24 hr 50 mg PO DAILY Patient Comments: take 1 tablet by mouth daily losartan 100 mg Tablet 100 mg PO DAILY Patient Comments: PM chlorthalidone 25 mg Tablet 25 mg PO DAILY Patient Comments: AM cholecalciferol (vitamin D3) [Vitamin D3] 2,000 unit Capsule 4,000 unit PO DAILY Probiotic Acidophilus 200 mg 200 mg DAILY apple cider vinegar 600 mg Capsule 600 mg PO DAILY alpha lipoic acid 600 mg Capsule 600 mg PO DAILY Beta Plus 100 mg 100 mg DAILY Hydrozyme 3 tab DAILY potassium chloride 10 mEq Tablet Extended Release 30 meq PO DAILY letrozole [Femara] 2.5 MG tablet 2.5 mg PO QDAY Qty: 90 3RF Referrals: Swetha Escalante MD [Primary Care Provider] - Stand Alone Forms: Patient Portal/API
[2023-09-09 23:36] LABS: D Dimer 247 ng/ml (<500)
[2023-09-10] VITALS: BP 189/85; PULSE 72; RESP 12; O2SAT 98
[2023-09-10 00:25] LABS: Troponin I < 0.012 ng/mL (0.01-0.034)
[2023-09-10 00:30] VITALS: PULSE 71; RESP 18; O2SAT 96
[2023-09-10 00:31] VITALS: BP 169/74; PULSE 70; RESP 22; O2SAT 96
[2023-09-10 01:00] VITALS: BP 153/69; PULSE 65; RESP 15; O2SAT 97
[2023-09-10 01:30] VITALS: BP 156/72; PULSE 69; RESP 16; O2SAT 94
[2023-09-10 02:00] VITALS: BP 175/84; PULSE 65; RESP 18; O2SAT 96
[2023-09-10] MEDS: KETOROLAC 30 MG/ML VIAL 15 MG IV (02:07)
== END 2023-09-10 02:22 | disposition home or self-care (01) ==
PROVIDERS: Emergency Provider Emergency Medicine; Family Provider Family Medicine; PCP Family Medicine
DX: I10 Essential (primary) hypertension (principal); R00.0 Tachycardia, unspecified; H93.8X2 Other specified disorders of left ear; R07.9 Chest pain, unspecified
CPT/HCPCS: 36415; 71045; 80053; 82550; 83605; 83690; 83735; 83880; 84484; 85025; 85379; 85610; 85730; 93005; 93010; 96374; 99284; J1885